=== PATIENT | female | born 1965 | race Caucasian/White ===

== ENCOUNTER 2018-07-20 18:45 | Inpatient (IN) ==
[2018-07-20] MEDS ORDERED: NS 1,000 ML IV ONE ×2 (19:59→23:02)
--- NOTE | 2018-07-20 20:04 | PROVIDER DOCUMENTATION ---
HPI-General Adult - General Chief Complaint: High Blood Sugar Stated Complaint: BLOOD SUGAR PROBS Time Seen by Provider: 07/20/18 19:40 Source: patient Allergies/Adverse Reactions: Patient Allergies Allergy/AdvReac Type Severity Reaction Status Date / Time Tetracyclines Allergy Severe RASH, SOB Verified 03/27/18 05:56 tigecycline [From Tygacil] Allergy Severe RASH, SOB Verified 03/27/18 05:56 Home Medications: Home Medication List Medication Instructions Recorded Confirmed Last Taken Type Pregabalin [Lyrica] 75 mg PO BID 03/19/17 07/20/18 02/22/18 08:00 History Insulin Lispro [Humalog] 20 unit SQ BID 04/04/17 07/20/18 03/26/18 21:00 History Insulin Glargine [Lantus] 30 unit SUBQ QHS #0 08/13/17 07/20/18 03/26/18 21:00 Rx - History of Present Illness -Gen Adult Nature of Presenting Problems: 53yof present to ER with c/o high blood sugar. States her blood sugar has fluctuated since March. Pt has hx of DKA and renal failure. Pt denies nv or fever. Fruity breathe noted. Location of Pain/Injury: reports: none Associated Symptoms: denies: chest pain, cough, diarrhea, fever/chills, genitourinary problems, sinus congestion/drainage, nausea, vomiting - Diabetes Related Context Context: reports: high blood sugar, prior DKA hospitalization Review of Systems - Adult - REVIEW OF SYSTEMS - ADULT Constitutional: reports: no symptoms reported. denies: chills, fever Eyes: reports: no symptoms reported Ears, Nose, Mouth & Throat: reports: no symptoms reported Cardiovascular: reports: no symptoms reported. denies: chest pain Respiratory: reports: no symptoms reported. denies: cough Gastrointestinal: reports: no symptoms reported. denies: abdominal pain, diarrhea, nausea, vomiting Genitourinary: reports: no symptoms reported. denies: dysuria, frequency, hematuria Musculoskeletal: reports: no symptoms reported Integumentary: reports: no symptoms reported Neurological: reports: no symptoms reported Psychiatric: reports: no symptoms reported Endocrine: reports: no symptoms reported Hematologic/Lymphatic: reports: no symptoms reported Allergic/Immunologic: reports: no symptoms reported All Other Systems: Reviewed and Negative Past History - Adult - PAST MEDICAL HISTORY-ADULT Review of Records: reports: Old Records Reviewed, Nursing Assessment Review, Medications Reviewed Major Childhood Illnesses: reports: denies history Cardiovascular: reports: HTN Respiratory: reports: denies history Gastrointestinal: reports: denies history Obstetrical/Gynecological: reports: denies history Genitourinary: reports: dialysis, kidney disease Musculoskeletal: reports: denies history Neurological: reports: denies history Endocrine/Immune: reports: Diabetes Diabetes Type: Type 2 Diabetes controlled by:: Insulin Dependent Other Conditions: reports: denies history - PRIOR SURGERIES/PROCEDURES Surgical/Procedure History: reports: , other (cyst removed from left leg) - PRIOR HOSPITALIZATIONS Prior Hospitalizations: reports: none - IMMUNIZATION STATUS Childhood Immunizations: See Nurse Assessment Flu Vaccine: See Nurse Assessment - FAMILY HISTORY Family History: reviewed, not pertinent Physical Exam-General - PHYSICAL EXAM-ADULT Initial Vital Signs Reviewed: Yes - CONSTITUTIONAL General Appearance: alert, no apparent distress - EYES Eyes: pink conjunctivae - HEAD, EARS, NOSE, MOUTH & THROAT HENMT: moist mucous membranes, normal ENT inspection - NECK Neck: full range of motion, supple, normal inspection - RESPIRATORY Respiratory: lungs clear, normal breath sounds - CARDIOVASCULAR Cardiovascular: regular rate, rhythm - GASTROINTESTINAL (ABDOMEN) Abdominal Exam: normal bowel sounds, non tender, soft - LYMPHATIC Lymphatic: no adenopathy - MUSCULOSKELETAL Back Exam: normal inspection, no CVA tenderness, no vertebral tenderness Extremity: normal range of motion, normal gait, normal inspection - SKIN Integumentary: normal color, normal turgor, warm/dry. negative: rash - NEUROLOGIC Neurologic: grossly normal - PSYCHIATRIC Psych/Mental Status: oriented x 3 Progress - PLAN OF CARE/RESULTS Progress/Plan/Lab Results: Vital Signs - 8 hr 07/20/18 19:31 Temperature 98.2 F Pulse Rate 94 H Respiratory Rate 18 Blood Pressure 133/81 O2 Sat by Pulse Oximetry 99 Orders Category Date Time Status FSBS [Finger Stick Blood Sugar (ED)] DIRECTED Care 07/20/18 20:00 Active Nursing- Obtain EKG once Care 07/20/18 19:58 Active ABG [RESP] Routine Lab 07/20/18 19:58 Ordered CBC WITH DIFF [HEME] Stat Lab 07/20/18 19:58 Uncollected COMPREHENSIVE METABOLIC PANEL [CHEM] Stat Lab 07/20/18 19:[address] W/POSS RFLX CULT [URINALYSIS] Stat Lab 07/20/18 19:58 Uncollected 0.9% Sodium Chloride Inj [Ns] 1,000 ml Med 07/20/18 19:59 Active IV 999 mls/hr EKG [EKG] Stat Ther 07/20/18 19:58 Ordered Result Diagrams: 07/20/18 20:25 07/20/18 20:25 - REASSESSMENT Reassessment #1 Time Reassessed: 22:00 (discussed results with pt and tx plan. Pt agrees. VSS. ) - CONSULTS/PCP/HOSPITALIST Notification #1 *Consult/PCP/Hospitalist*: Dr Del Real, hospitalist Time Discussed: 19:48 (admission dka) Consult Disposition: Admit Departure - Departure Date of Disposition Decision: 07/20/18 Time of Disposition Decision: 21:52 DIAGNOSIS: Ketoacidosis in diabetes mellitus Disposition: ADMITTED INPATIENT 09 Certified Medical Emergency: Emergent Condition: Fair Referrals and Follow-Ups: Georgi Avery MD [Primary Care Provider] - - Critical Care Note This patient required my direct & personal management of CC.: Yes Total Time (mins): 40 Critical Care Statement: This patient required my direct personal management to treat or rule out processes, the absence of which, could potentiallly result in sudden, clinically significant life or limb threatening deterioration. Attestation - Physician/ LUIS MANUEL Attestation Patient care was provided by Advanced Practice Provider:: Yes Advanced Practice Provider:: [employer] [place] Advanced Practice Provider documentation review:: The Mid-level provider documentation, treatment plan and medical decision making was reviewed by the physician who agrees with all treatment and medical decision making by the MLP. The physician spent face to face time with patient:: No Advanced Practice Provider documentation review:: Supervising physician onsite and consulted in the evaluation and care of this patient. The physician did not have a face to face encounter with the patient.
[2018-07-20 20:35] LABS: BE -18.8 mmoll (-3.0-3.0); BLOOD TYPE ARTERIAL; HCO3-(ACT) 10.2 mmoll (20.0-26.0); METHB 1.4 % (0.0-1.5); O2(CT) 18.3 mL/dL (15.0-23.0); O2HB 95.7 % (95.0-99.0); PCO2(98.6) 20 mmHg (35-45); PO2(98.6) 108 mmHg (60-100); SAMPLE BLOOD; SAO2 99.1 % (95.0-100.0); THB 13.5 g/dL (11.5-17.4)
[2018-07-20 20:40] LABS: ALLEN TEST YES; MODALITY ROOM AIR; pH(98.6) 7.18 (7.35-7.45)
--- NOTE | 2018-07-20 20:42 | EKG Report ---
Test Performed on : 07/20/2018 8:25:02 PM Test Reason : weakness Blood Pressure : / mmHG Vent. Rate : 090 BPM Atrial Rate : 090 BPM P-R Int : 182 ms QRS Dur : 090 ms QT Int : 372 ms P-R-T Axes : 056 032 055 degrees QTc Int : 455 ms Normal sinus rhythm. Possible Left atrial enlargement Borderline ECG When compared with ECG of 14-JUL-2018 09:57, (Unconfirmed) Nonspecific T wave abnormality no longer evident in Anterolateral leads Unconfirmed Result
[2018-07-20 20:49] LABS: BASO# 0.01 X1000 (0.0-0.2); BASO% 0.3 % (0.0-0.8); EOS# 0.03 X1000 (0.0-0.7); EOS% 0.9 % (0.0-10.0); HEMATOCRIT 40.2 % (37.0-47.0); HEMOGLOBIN 13.4 g/dL (12.0-16.0); IMM GRAN# 0.01 X1000 (0.0-0.04); IMM GRAN% 0.3 % (0.0-0.5); LYMPH# 1.11 X1000 (1.2-3.4); LYMPH% 33.7 % (20.5-51.1); MCH 30.6 PG (27-31); MCHC 33.3 g/dL (33-37); MCV 91.8 FL (81-99); MONO# 0.24 X1000 (0.11-0.59); MONO% 7.3 % (1.7-9.3); MPV 10.7 FL (7.4-10.4); NEUT# 1.89 X1000 (1.4-6.5); NEUT% 57.5 % (42.2-75.2); PLT 203 X1000 (130-400); RBC 4.38 XMIL (4.2-5.4); RDW 12.3 % (11.5-14.5); WBC 3.29 X1000 (4.8-10.8)
[2018-07-20 21:02] LABS: BILIRUBIN URINE NEGATIVE (NEGATIVE); BLOOD URINE TRACE (NEGATIVE); CLARITY CLEAR (CLEAR); COLOR YELLOW; KETONE URINE 3+(Large) mg/dL (NEGATIVE); LEUKOCYTES URINE NEGATIVE (NEGATIVE); NITRITE URINE NEGATIVE (NEGATIVE); PROTEIN URINE TRACE mg/dL (NEGATIVE); SP GRAVITY URINE 1.015; UROBILINOGEN URINE NORMAL
[2018-07-20 21:05] LABS: URINE SOURCE CLEAN CATCH
[2018-07-20 21:05] LABS: ALBUMIN 3.6 g/dL (3.5-5.0); CALCIUM 9.5 mg/dL (8.8-10.2); CREATININE 1.2 mg/dL (0.5-0.9); POTASSIUM 4.6 mmol/L (3.5-5.1); TOTAL BILIRUBIN 0.4 mg/dL (0.20-1.00); TOTAL PROTEIN 7.5 g/dL (6.3-8.3)
[2018-07-20 21:06] LABS: URINE BACTERIA NEGATIVE /HFP; URINE CAST NONE SEEN /LPF; URINE CRYSTAL NONE SEEN /HPF; URINE EPITHELIAL CELLS <10 /HPF (<10); URINE RBC <10 /HPF (<10); URINE WBC <10 /HPF (<10); URINE YEAST NONE SEEN /HPF
[2018-07-20] MEDS ORDERED: HUMULIN R (PARKWAY) IV ONE (21:08)
--- NOTE | 2018-07-20 22:10 | Diag Imaging Result Doc PS360 ---
EXAM: CHEST-2 VIEWS - 07/20/2018 HISTORY: DKA TECHNIQUE: Chest two views COMPARISON: 07/14/2018 FINDINGS: Heart size is normal. There is mild tortuosity of the thoracic aorta similar to prior. The lungs appear clear. There is no substantial pleural effusion or pneumothorax identified. There is thoracic spondylosis noted. IMPRESSION: No evidence of acute disease. Electronically signed by Hubert Garcia 07/20/2018 10:07 PM
[2018-07-20] MEDS: HUMULIN R (PARKWAY) 100 UNITS in NS 100 ML IV SCH (22:15)
[2018-07-20 22:31] LABS: BE -18.7 mmoll (-3.0-3.0); BLOOD TYPE ARTERIAL; HCO3-(ACT) 10.3 mmoll (20.0-26.0); METHB 1.5 % (0.0-1.5); O2(CT) 17.9 mL/dL (15.0-23.0); O2HB 95.6 % (95.0-99.0); PCO2(98.6) 22 mmHg (35-45); PO2(98.6) 117 mmHg (60-100); SAMPLE BLOOD; SAO2 98.8 % (95.0-100.0); THB 13.2 g/dL (11.5-17.4)
[2018-07-20 22:33] LABS: ALLEN TEST NO; MODALITY ROOM AIR; pH(98.6) 7.17 (7.35-7.45)
[2018-07-20] MEDS ORDERED: ZOFRAN IV ONE (23:02)
--- NOTE | 2018-07-20 23:36 | ED EKG INTERP ---
This chart was entered by Lyn Best Scribe, acting as scribe for Gaston Easton MD. EKG Interpretation - EKG Time of EKG reading by physician:: 20:25 EKG Read and Signed by:: Gaston Easton EKG Interpretation (*Must complete 3 of following elements*): Abnormal (poss LAE ) Rate: 90 Rhythm: nsr [place]: normal QRS: normal NM Interval: normal ST Wave: normal Prior EKG Comparison: no prior EKG Attestation - Physician/ LUIS MANUEL Attestation Patient care was provided by Advanced Practice Provider:: Yes Advanced Practice Provider documentation review:: The Mid-level provider documentation, treatment plan and medical decision making was reviewed by the physician who agrees with all treatment and medical decision making by the MLP. The physician spent face to face time with patient:: No Advanced Practice Provider documentation review:: Supervising physician onsite and consulted in the evaluation and care of this patient. The physician did not have a face to face encounter with the patient. This chart was documented by the indicated scribe, (Lyn Best Scribe) and accurately reflects the services I performed and decisions made by me, Gaston Easton MD, as attested by the provider's signature.
[2018-07-20 23:45] LABS: CALCIUM 8.9 mg/dL (8.8-10.2); CREATININE 1.1 mg/dL (0.5-0.9); PHOSPHORUS 2.1 mg/dL (2.7-4.5); POTASSIUM 3.7 mmol/L (3.5-5.1)
[2018-07-21] MEDS: HUMULIN R (PARKWAY) 100 UNITS in NS 100 ML IV SCH ×6 (00:16→10:00)
[2018-07-21] MEDS ORDERED: POTASSIUM CHLORIDE 10% LIQUID PO ONE ×2 (01:15→05:18)
[2018-07-21] MEDS ORDERED: KLOR-CON PO ONE (01:24)
[2018-07-21] MEDS ORDERED: NS 1,000 ML IV SCH (01:30)
[2018-07-21] MEDS: D5 1/2 NS 1,000 ML IV SCH ×2 (02:55→07:45)
[2018-07-21 04:17] LABS: BLOOD TYPE ARTERIAL; HCO3-(ACT) 17.9 mmoll (20.0-26.0); METHB 1.7 % (0.0-1.5); O2(CT) 15.8 mL/dL (15.0-23.0); O2HB 95.3 % (95.0-99.0); PCO2(98.6) 30 mmHg (35-45); PO2(98.6) 101 mmHg (60-100); SAMPLE BLOOD; THB 11.7 g/dL (11.5-17.4); pH(98.6) 7.33 (7.35-7.45)
[2018-07-21 04:19] LABS: ALLEN TEST YES; MODALITY ROOM AIR
[2018-07-21 05:14] LABS: CALCIUM 8.5 mg/dL (8.8-10.2); PHOSPHORUS 1.5 mg/dL (2.7-4.5); POTASSIUM 3.3 mmol/L (3.5-5.1)
[2018-07-21 07:48] LABS: AGAP 11; BUN 14 mg/dL (8-22); CALCIUM 8.4 mg/dL (8.8-10.2); CHLORIDE 108 mmol/L (98-107); COSMO 276; CREATININE 0.8 mg/dL (0.5-0.9); ESTIMATED GFR > 60; GLUCOSE 171 mg/dL (70-104); PHOSPHORUS 2.2 mg/dL (2.7-4.5); POTASSIUM 4.1 mmol/L (3.5-5.1); SODIUM 136 mmol/L (136-145); TCO2 17 mmol/L (25-35)
[2018-07-21 08:18] LABS: BE -7.9 mmoll (-3.0-3.0); BLOOD TYPE ARTERIAL; HCO3-(ACT) 18.7 mmoll (20.0-26.0); METHB 1.5 % (0.0-1.5); O2(CT) 15.5 mL/dL (15.0-23.0); O2HB 95.8 % (95.0-99.0); PCO2(98.6) 30 mmHg (35-45); PO2(98.6) 106 mmHg (60-100); SAMPLE BLOOD; SAO2 99.2 % (95.0-100.0); THB 11.4 g/dL (11.5-17.4); pH(98.6) 7.35 (7.35-7.45)
[2018-07-21 08:28] LABS: ALLEN TEST YES; MODALITY ROOM AIR
--- NOTE | 2018-07-21 10:06 | HISTORY AND PHYSICAL ---
PRIMARY CARE PHYSICIAN: Dr. Avery. CHIEF COMPLAINT: Elevated blood sugar. HISTORY OF PRESENTING ILLNESS: This is a 53-year-old, female who presents to [facility] ER with complaints of high blood sugar. She states that her blood sugars have been fluctuating since March. She has had several admissions for DKA in the past. When she arrived to the emergency room, her blood sugar was 719, sodium was 127, creatinine was 1.2. ABG showed a pH of 7.18, pCO2 of 20, PO2 108, bicarb of 10.2, and that was on room air. She was admitted in DKA and placed on the DKA protocol but we did not have a unit bed available so she is holding in the emergency room at this time. It is noted that her blood sugars have improved now. This morning, it was 171 so she will be admitted to the intensive care unit once a bed is made available. PAST MEDICAL HISTORY: Diabetes, chronic pain, neuropathy, chronic kidney disease that required dialysis in the past but is not currently receiving dialysis, and has had frequent admissions for DKA. PAST SURGICAL HISTORY: Vascular access for her dialysis and a section. FAMILY HISTORY: Reviewed and noncontributory. SOCIAL HISTORY: She currently lives alone. Denies any tobacco, alcohol, or illicit drug use. ALLERGIES: To tetracycline and tigecycline. HOME MEDICATIONS: She takes Lantus 30 units subcutaneous at bedtime, Humalog 20 units subcutaneously b.i.d., and Lyrica 75 mg p.o. b.i.d. We will hold those at this time while she is on her insulin drip. I will allow her to have her Lyrica. LABORATORY DATA: Showed a white blood cell count of 3.29, hemoglobin 13.4, hematocrit 40.2, platelets 203,000. ABG on arrival showed a pH of 7.18, pCO2 of 20, PO2 of 108, bicarb 10.2. That was on room air. This morning, her ABG showed a pH of 7.35, pCO2 of 30, PO2 106, bicarb 18.7, and that was on room air also. On arrival, her sodium was 127, potassium 4.6, chloride 88, CO2 9, BUN of 18, creatinine 1.2, glucose 719. Magnesium was 1.9. This morning, her sodium was 136, potassium 4.1, chloride 108, CO2 17, BUN of 14, creatinine 0.8, glucose 171. Urinalysis was negative. Chest x-ray showed no evidence of acute disease. EKG showed normal sinus rhythm at 90. REVIEW OF SYSTEMS: She denied any fever or chills. She did have some blurred vision and dizziness. Denied any chest pain, coughing, shortness of breath. Denied any abdominal pain, constipation, diarrhea, or burning or hurting with urination. PHYSICAL EXAMINATION: VITAL SIGNS: On arrival, she had a temperature of 98.2 degrees, pulse 94, respirations 18, blood pressure 133/81, saturating 99% on room air. GENERAL: This is a 53-year-old, female, lying in the bed and answers questions appropriately. HEENT: Normocephalic and atraumatic. Normal ENT inspection. Oropharynx and nares are clear. Eyes: Pupils are equal, round, and reactive to light and accommodation. Extraocular movements are intact. NECK: Normal inspection. Normal range of motion. LUNGS: Clear to auscultation bilaterally with equal lung expansion and chest wall movement. HEART: With regular rate and rhythm. No murmurs, rubs, or gallops. ABDOMEN: Soft, nontender, nondistended. Bowel sounds are present x4 quadrants. MUSCULOSKELETAL: She has 5/5 strength x4 extremities. NEUROLOGICAL: The cranial nerves 2-12 appear grossly intact. ASSESSMENT: 1. Diabetic ketoacidosis. 2. Hypokalemia. 3. Diabetes type 2, uncontrolled with hyperglycemia. 4. Chronic pain. PLAN: She is to be admitted to the intensive care unit. We do not have a bed available at this time so she is holding in the emergency room. Placed an indwelling Arriaga catheter. Diabetic diet. She was supplemented with potassium in the emergency room, given 2 L of normal saline, given 10 units of Humulin R IV x1. She is currently on D5 and a half NS at 200 mL an hour. Further orders after seen by attending. Dictated by DONAVON Garcia for Jose Del Real MD cc: DONAVON Garcia MD Moses Awoniyi, MD
[2018-07-21] MEDS ORDERED: FLU VACCINE IM ONE (11:05)
[2018-07-21] MEDS: LYRICA PO SCH ×2 (11:40→20:17)
[2018-07-21] MEDS: NS 1,000 ML IV SCH ×2 (11:40→22:31)
[2018-07-21 11:52] LABS: AGAP 14; BUN 12 mg/dL (8-22); CHLORIDE 105 mmol/L (98-107); COSMO 282; CREATININE 0.9 mg/dL (0.5-0.9); ESTIMATED GFR > 60; GLUCOSE 282 mg/dL (70-104); PHOSPHORUS 2.2 mg/dL (2.7-4.5); POTASSIUM 4.6 mmol/L (3.5-5.1); SODIUM 136 mmol/L (136-145); TCO2 17 mmol/L (25-35)
[2018-07-21] MEDS: HUMALOG DOSE (PARKWAY) SUBQ SCH ×3 (12:18→22:30)
[2018-07-21 16:10] LABS: AGAP 11; BUN 13 mg/dL (8-22); CALCIUM 8.3 mg/dL (8.8-10.2); CHLORIDE 107 mmol/L (98-107); COSMO 283; CREATININE 0.9 mg/dL (0.5-0.9); ESTIMATED GFR > 60; GLUCOSE 254 mg/dL (70-104); PHOSPHORUS 1.9 mg/dL (2.7-4.5); POTASSIUM 3.9 mmol/L (3.5-5.1); SODIUM 137 mmol/L (136-145); TCO2 19 mmol/L (25-35)
[2018-07-21] MEDS ORDERED: ZOFRAN IV PRN (17:42)
[2018-07-21] MEDS ORDERED: TYLENOL PO PRN (17:42)
[2018-07-21] MEDS ORDERED: SODIUM CHLORIDE 0.9% INJ SCH (17:45)
[2018-07-21] MEDS ORDERED: INSULIN PEN NEEDLES MISC PRN (17:51)
--- NOTE | 2018-07-21 18:37 | PROGRESS NOTE ---
DATE: 07/21/2018 SUBJECTIVE: I have seen in conjunction with Pili Harris. Briefly, patient came in with elevated blood sugar. She says her sugars usually are fairly well controlled. She has been compliant with her medications, but she is just extremely brittle. She has lost a lot of weight. This actually probably could be categorized. She was 261. She is down to 234, and curiously she is down to 195, but her weight about a year ago was 260 pounds, so she has lost a significant amount of weight. In any case, the patient's blood sugar is elevated. She was felt to be in DKA. She was placed on insulin and her gap closed. She has been switched off her insulin and now she is stabilizing. Her kidney function is basically back to normal. PROBLEM LIST: 1. DKA. We will continue fluids, insulin and follow closely. 2. Hypokalemia, hypophosphatemia. We will supplement and follow. DISPOSITION: Pending clinical status. cc: Jose Del Real MD
[2018-07-21] MEDS: PROTONIX IV SCH (19:19)
[2018-07-21] MEDS: NEUTRA-PHOS PO SCH (20:17)
[2018-07-21] MEDS ORDERED: BASAGLAR SUBQ SCH (21:00)
[2018-07-22 06:34] LABS: BASO# 0.01 X1000 (0.0-0.2); BASO% 0.3 % (0.0-0.8); EOS# 0.07 X1000 (0.0-0.7); HEMOGLOBIN 11.6 g/dL (12.0-16.0); LYMPH# 1.73 X1000 (1.2-3.4); LYMPH% 50.6 % (20.5-51.1); MCH 29.7 PG (27-31); MCHC 33.1 g/dL (33-37); MCV 89.7 FL (81-99); MONO# 0.28 X1000 (0.11-0.59); MONO% 8.2 % (1.7-9.3); MPV 10.1 FL (7.4-10.4); NEUT# 1.33 X1000 (1.4-6.5); NEUT% 38.9 % (42.2-75.2); PLT 166 X1000 (130-400); RDW 12.6 % (11.5-14.5); WBC 3.42 X1000 (4.8-10.8)
[2018-07-22] MEDS: HUMALOG DOSE (PARKWAY) SUBQ SCH ×2 (06:34→12:46)
[2018-07-22] MEDS: NS 1,000 ML IV SCH (06:34)
[2018-07-22 06:48] LABS: AGAP 12; BUN 10 mg/dL (8-22); CHLORIDE 111 mmol/L (98-107); COSMO 281; CREATININE 0.7 mg/dL (0.5-0.9); ESTIMATED GFR > 60; GLUCOSE 69 mg/dL (70-104); POTASSIUM 3.6 mmol/L (3.5-5.1); SODIUM 142 mmol/L (136-145); TCO2 19 mmol/L (25-35)
[2018-07-22] MEDS: NEUTRA-PHOS PO SCH ×3 (12:58→17:27)
[2018-07-22] MEDS: LYRICA PO SCH (12:58)
[2018-07-22 15:23] VITALS: BP 106/72
[2018-07-22] MEDS ORDERED: HUMALOG DOSE (PARKWAY) SUBQ SCH (16:00)
[2018-07-22] MEDS: PROTONIX IV SCH (17:27)
--- NOTE | 2018-07-22 21:11 | DISCHARGE SUMMARY ---
ADMISSION DATE: 07/20/2018 DISCHARGE DATE: 07/22/2018 SUBJECTIVE: Patient has no focal complaints. DISCHARGE DIAGNOSES: 1. Diabetic ketoacidosis. 2. "Brittle" diabetes. HOSPITAL COURSE: The patient presented with hyperglycemia. She had a bicarb of 10. She had sugar of 719, pH 7.18. She was placed on an insulin drip and slowly improved. Her gap closed by that morning. She was transitioned to Lantus. However, sugars were still in the 300/400 range, so we monitored her another day. She also dropped in the morning to about 60. Her last sugar, though, was around 287. Actually, she had pretty good control on the , but that was on an insulin drip. So, she was felt stable for discharge. She was discharged on increased dose of Lantus 20/35. She takes Humalog 20 b.i.d., but I would probably recommend she take 10 three times a day, and then she is also on Lyrica 75 b.i.d. I told to follow up with her PCP, is Dr. Georgi Chambers, and we will go from there. TIME SPENT: A 30 minute discharge. cc: Jose Del Real MD
== END 2018-07-22 19:45 | disposition home or self-care (01) | DRG 639 ==
LOC: P.ED 18:45 → P.EDIPHOLD 22:03
PROVIDERS: ATTEND Internal Medicine
CPT/HCPCS: 36415; 51702; 71020; 71046; 80048; 80053; 81001; 82805; 82948; 83036; 83735; 84100; 85025; 93005; 96361; 96365; 96366; 96375; 99285; 99291; A9270; C9113; J1815; J2405; J7030; S0164; XXXXX

== ENCOUNTER 2019-01-11 17:41 | Inpatient (IN) ==
--- NOTE | 2019-01-11 19:40 | PROVIDER DOCUMENTATION ---
HPI-General Adult - General Chief Complaint: High Blood Sugar Stated Complaint: BLOOD SUGAR LOW Time Seen by Provider: 01/11/19 19:30 Source: patient Allergies/Adverse Reactions: Patient Allergies Allergy/AdvReac Type Severity Reaction Status Date / Time Tetracyclines Allergy Severe RASH, SOB Verified 03/27/18 05:56 tigecycline [From Tygacil] Allergy Severe RASH, SOB Verified 03/27/18 05:56 Home Medications: Home Medication List Medication Instructions Recorded Confirmed Last Taken Type Pregabalin [Lyrica] 75 mg PO BID 03/19/17 07/20/18 02/22/18 08:00 History Insulin Glargine [Lantus] 35 unit SUBQ QHS #1 insuln.pen 07/22/18 Unknown Rx Insulin Lispro [Humalog] 10 unit SQ TID #1 cartridge 07/22/18 Unknown Rx - History of Present Illness -Gen Adult Nature of Presenting Problems: 53 YOF PRESENTS REPORTING HER BG HAS BEEN GOING UP AND DOWN SINCE JULY AND SHE "SOMETIMES GETS LIGHTHEADED AND WAS THINKING SHE MIGHT NEED TO BE SENT TO THE [facility]. SHE DENIES FALLS. SHE REPORTS SHE HAD TO "SIT DOWN HARD" ON THE SOFA TODAY WHEN SHE STOOD UP TO ANSWER THE DOOR. SHE DENIES FEVER, CHILLS, SOB, CP, PALPITATIONS, N/V/D. SHE ALSO C/O A HEAD ACHE AND WHEN OFFERED TYLENOL SHE DECLINES THIS Location of Pain/Injury: reports: head Quality of Pain: reports: aching Severity: reports: mild Onset/Duration: reports: other (SINCE JULY) Timing: reports: still present Context/Activities at Onset: reports: none Modifying Factors: improves with: nothing Associated Symptoms: reports: headaches Similar Symptoms Previously?: No Recently seen or treated by another doctor?: No - Diabetes Related Context Context: reports: high blood sugar Review of Systems - Adult - REVIEW OF SYSTEMS - ADULT Constitutional: reports: no symptoms reported. denies: see HPI, chills, fever, fatique, night sweats, weight gain, weight loss, other Eyes: reports: no symptoms reported. denies: see HPI, discharge, dry eyes, decreased vision, blurred vision, double vision, eye pain, redness, other Ears, Nose, Mouth & Throat: reports: no symptoms reported. denies: see HPI, ear discharge, ear pain, hearing loss, tinnitus, epistaxis, sinus problem, nose pain, loose teeth, mouth/dental pain, mouth swelling, hoarseness, throat pain, throat swelling, other Cardiovascular: reports: no symptoms reported. denies: see HPI, chest pain, edema, heart murmur, irregular heart rate, orthopnea, palpitations, poor circulation, PND, syncope, other Respiratory: reports: no symptoms reported. denies: see HPI, chronic cough, cough, dyspnea on exertion, excessive sputum production, hemoptysis, pleurisy, shortness of breath, wheezing, other Gastrointestinal: reports: no symptoms reported. denies: see HPI, abdominal pain, hematemesis, constipation, diarrhea, difficulty swallowing, frequent heartburn, nausea, poor appetite, rectal bleeding, vomiting, other Genitourinary: reports: no symptoms reported. denies: see HPI, dysuria, discharge, frequency, flank pain, frequent UTI's, hematuria, hesitency, incontinence, urinary retention, urgency, other Musculoskeletal: reports: no symptoms reported. denies: see HPI, bone pain, back pain, frequent leg cramps, joint pain, joint swelling, muscle aches, muscle weakness, neck pain, other Integumentary: reports: no symptoms reported. denies: see HPI, hives, hair loss, itching, mole changes, nail changes, rash, skin sores/ulcer, skin thickening, other Neurological: reports: headache/migraines. denies: no symptoms reported, see HPI, ataxia, dizziness/vertigo, loss of balance, numbness, paresthesia, seizure, slurred speech, syncope, tremors, other Psychiatric: reports: no symptoms reported. denies: see HPI, anxiety, anti- depressant use, alcohol/drug dependence, depression, emotional problems, insomnia, panic attacks, suicidal thoughts, other Endocrine: reports: no symptoms reported. denies: see HPI, change in skin pigment, excessive sweating, goiter, cold intolerance, heat intolerance, increased hunger, increased thirst, polyuria, other Hematologic/Lymphatic: reports: no symptoms reported. denies: see HPI, blood clots, easy bruising, low blood count, lymphedema, prolonged bleeding, swollen lymph nodes, transfusions, other Allergic/Immunologic: denies: no symptoms reported, see HPI, allergic reactions, allergic rhinitis, asthma, eczema, food allergy, frequent infections, hay fever, hives, positive PPD, urticaria, other Past History - Adult - PAST MEDICAL HISTORY-ADULT Review of Records: reports: Nursing Assessment Review, Social history reviewed & non-contributory. Major Childhood Illnesses: reports: denies history Cardiovascular: reports: HTN Respiratory: reports: denies history Gastrointestinal: reports: denies history Obstetrical/Gynecological: reports: denies history Genitourinary: reports: dialysis, kidney disease Musculoskeletal: reports: denies history Neurological: reports: denies history Endocrine/Immune: reports: Diabetes Other Conditions: reports: denies history - PRIOR SURGERIES/PROCEDURES Surgical/Procedure History: reports: , other (cyst removed from left leg) - PRIOR HOSPITALIZATIONS Prior Hospitalizations: reports: none - IMMUNIZATION STATUS Childhood Immunizations: See Nurse Assessment Flu Vaccine: See Nurse Assessment - FAMILY HISTORY Family History: reviewed, not pertinent Physical Exam-General - PHYSICAL EXAM-ADULT Initial Vital Signs Reviewed: Yes - CONSTITUTIONAL General Appearance: appears well, alert, no apparent distress - EYES Eyes: PERRL/EOMI - HEAD, EARS, NOSE, MOUTH & THROAT HENMT: normocephalic/atraumatic, moist mucous membranes, normal ENT inspection - NECK Neck: non-tender, full range of motion, supple - RESPIRATORY Respiratory: chest non-tender, lungs clear, normal breath sounds - CARDIOVASCULAR Cardiovascular: normal peripheral pulses, regular rate, rhythm, no edema, no gallop, no JVD, no murmur - GASTROINTESTINAL (ABDOMEN) Abdominal Exam: normal bowel sounds, non tender, soft - LYMPHATIC Lymphatic: no adenopathy - MUSCULOSKELETAL Back Exam: normal inspection Extremity: normal range of motion, non-tender, normal gait, normal inspection - SKIN Integumentary: normal color, normal turgor, warm/dry - NEUROLOGIC Neurologic: grossly normal - PSYCHIATRIC Psych/Mental Status: normal mood/affect, oriented x 3 Progress - PLAN OF CARE/RESULTS Progress/Plan/Lab Results: Vital Signs - 8 hr 01/11/19 17:50 Temperature 97.9 F Pulse Rate 111 H Respiratory Rate 18 Blood Pressure 121/80 O2 Sat by Pulse Oximetry 98 Laboratory Results - last 24 hr 01/11/19 17:55 POC Glucose 160 H D Orders Category Date Time Status ACETONE SERUM [CHEM] Stat Lab 01/11/19 19:33 Ordered CBC WITH ELECTRONIC DIFF [HEME] Stat Lab 01/11/19 19:33 Uncollected COMPREHENSIVE METABOLIC PANEL [CHEM] Stat Lab 01/11/19 19:33 Uncollected 1935: PATIENT IS REPORTING SHE REALLY FEELS LIKE SHE NEEDS SNF PLACEMENT DISCUSSED THAT THIS COULD BE ACHIEVED THROUGH HER PCP Result Diagrams: 01/11/19 19:55 01/11/19 19:55 - CONSULTS/PCP/HOSPITALIST Notification #1 *Consult/PCP/Hospitalist*: DR. AYALA Time Discussed: 21:44 Consult Disposition: Admit Departure - Departure Date of Disposition Decision: 01/11/19 Time of Disposition Decision: 21:43 DIAGNOSIS: Ketoacidosis in diabetes mellitus Disposition: ADMITTED INPATIENT 09 Certified Medical Emergency: Emergent Condition: Stable Referrals and Follow-Ups: Georgi Avery MD [Primary Care Provider] - - Critical Care Note This patient required my direct & personal management of CC.: No Attestation - Physician/ LUIS MANUEL Attestation Patient care was provided by Advanced Practice Provider:: Yes Advanced Practice Provider:: Sharifa Sandhu Advanced Practice Provider documentation review:: The Mid-level provider documentation, treatment plan and medical decision making was reviewed by the physician who agrees with all treatment and medical decision making by the MLP. The physician spent face to face time with patient:: No Advanced Practice Provider documentation review:: Supervising physician onsite and consulted in the evaluation and care of this patient. The physician did not have a face to face encounter with the patient.
[2019-01-11 20:09] LABS: BASO# 0.01 X1000 (0.0-0.2); BASO% 0.1 % (0.0-0.8); EOS# 0.01 X1000 (0.0-0.7); EOS% 0.1 % (0.0-10.0); HEMOGLOBIN 14.4 g/dL (12.0-16.0); IMM GRAN# 0.02 X1000 (0.0-0.04); IMM GRAN% 0.2 % (0.0-0.5); LYMPH# 1.23 X1000 (1.2-3.4); LYMPH% 13.5 % (20.5-51.1); MCH 31.1 PG (27-31); MCHC 34.3 g/dL (33-37); MCV 90.7 FL (81-99); MONO# 0.54 X1000 (0.11-0.59); MONO% 5.9 % (1.7-9.3); MPV 10.3 FL (7.4-10.4); NEUT# 7.27 X1000 (1.4-6.5); NEUT% 80.2 % (42.2-75.2); PLT 290 X1000 (130-400); RBC 4.63 XMIL (4.2-5.4); RDW 12.4 % (11.5-14.5); WBC 9.08 X1000 (4.8-10.8)
[2019-01-11 20:24] LABS: ALBUMIN 4.7 g/dL (3.5-5.0); CALCIUM 9.7 mg/dL (8.8-10.2); CREATININE 1.7 mg/dL (0.5-0.9); POTASSIUM 3.7 mmol/L (3.5-5.1); TOTAL BILIRUBIN 0.5 mg/dL (0.20-1.00); TOTAL PROTEIN 8.3 g/dL (6.3-8.3)
[2019-01-11] MEDS ORDERED: NS 1,000 ML IV ONE ×3 (20:28→21:47)
[2019-01-11 21:07] LABS: BE -10.9 mmoll (-3.0-3.0); BLOOD TYPE ARTERIAL; HCO3-(ACT) 16.4 mmoll (20.0-26.0); METHB 1.5 % (0.0-1.5); O2(CT) 19.9 mL/dL (15.0-23.0); O2HB 95.7 % (95.0-99.0); PCO2(98.6) 26 mmHg (35-45); PO2(98.6) 95 mmHg (60-100); SAMPLE BLOOD; SAO2 99.1 % (95.0-100.0); THB 14.7 g/dL (11.5-17.4); pH(98.6) 7.32 (7.35-7.45)
[2019-01-11 21:10] LABS: ALLEN TEST YES; MODALITY ROOM AIR
[2019-01-11] MEDS ORDERED: HUMULIN R (PARKWAY) SUBQ ONE (23:14)
[2019-01-12] MEDS: NS 1,000 ML IV SCH ×4 (00:03→21:38)
[2019-01-12 07:27] LABS: BASO# 0.01 X1000 (0.0-0.2); BASO% 0.2 % (0.0-0.8); EOS% 1.8 % (0.0-10.0); HEMATOCRIT 35.6 % (37.0-47.0); HEMOGLOBIN 12.1 g/dL (12.0-16.0); IMM GRAN# 0.01 X1000 (0.0-0.04); IMM GRAN% 0.2 % (0.0-0.5); LYMPH# 1.42 X1000 (1.2-3.4); LYMPH% 25.4 % (20.5-51.1); MCH 30.7 PG (27-31); MCV 90.4 FL (81-99); MONO# 0.54 X1000 (0.11-0.59); MONO% 9.7 % (1.7-9.3); MPV 10.8 FL (7.4-10.4); NEUT% 62.7 % (42.2-75.2); PLT 209 X1000 (130-400); RBC 3.94 XMIL (4.2-5.4); RDW 12.3 % (11.5-14.5); WBC 5.58 X1000 (4.8-10.8)
[2019-01-12 07:28] LABS: ALBUMIN 3.6 g/dL (3.5-5.0); CALCIUM 8.7 mg/dL (8.8-10.2); CREATININE 1.2 mg/dL (0.5-0.9); POTASSIUM 4.2 mmol/L (3.5-5.1); TOTAL BILIRUBIN 0.4 mg/dL (0.20-1.00); TOTAL PROTEIN 6.6 g/dL (6.3-8.3)
[2019-01-12 07:33] LABS: HEMOGLOBIN A1C 13.7 % (4.8-6.0)
[2019-01-12] MEDS: HUMALOG (PARKWAY) SUBQ SCH ×3 (13:02→21:40)
--- NOTE | 2019-01-12 16:51 | HISTORY AND PHYSICAL ---
CHIEF COMPLAINT: "I think my blood sugar is low." HISTORY OF PRESENT ILLNESS: This is a 54-year-old female with a history of diabetes mellitus, chronic pain, chronic kidney disease requiring hemodialysis in the past with frequent admissions for DKA. She presents to the emergency room complaining of feeling weak and "sitting down real hard" prior to arrival to the emergency room. She denied any syncope, any dizziness, any chest pain, or palpitations. She did state to the emergency room staff that she wondered if she needed to be sent to the detention. PAST MEDICAL HISTORY: 1. Diabetes mellitus. 2. Chronic pain. 3. Neuropathy. 4. Chronic kidney disease requiring dialysis in the past. 5. Noncompliance. PAST SURGICAL HISTORY: Vascular access for dialysis and a . SOCIAL HISTORY: She lives alone. She denies alcohol, tobacco, or illicit drug use. ALLERGIES: Tetracycline and tigecycline. HOME MEDICATIONS: A list will be obtained by the nursing staff, and once verified we will review and restart as is appropriate. REVIEW OF SYSTEMS: Discussed with patient with pertinent positives stated in the HPI. She denied any syncope or dizziness, any chest pain, palpitations, any recent weight loss or weight gain, night sweats, shortness of breath, cough, fever, chills, any PND, orthopnea, any nausea, vomiting, diarrhea, constipation, black or bloody vomitus or stools, any hematuria, dysuria, frequency, urgency. PHYSICAL EXAMINATION: GENERAL: This is a 54-year-old female, who is lying in the bed watching TV in no distress. VITAL SIGNS: Blood pressure is 121/72 with a heart rate of 70, respirations 18, temperature is 98 degrees oral with room air saturations 100%. EYES: Pupils are equal, round, react to light. EOMs are intact. Sclerae are anicteric. HEENT: Head is normocephalic, atraumatic. Mucous membranes are moist. NECK: Supple with trachea midline. She has no JVD. CARDIOVASCULAR: Regular rate and rhythm. S1 and S2 appreciated. EXTREMITIES: She has no lower extremity edema. Peripheral pulses are palpable times 4 extremities. Calves are nontender to palpation. PULMONARY: Breath sounds are clear with no increased work of breathing noted. Chest rises and falls symmetric to respiration. Chest wall is nontender to palpation. GASTROINTESTINAL: Abdomen is soft, nontender, nondistended with bowel sounds in all 4 quadrants. GENITOURINARY: She has no CVA. No suprapubic tenderness. NEUROLOGIC: She is alert and oriented. LABORATORY DATA: WBC 5.5, hemoglobin 12.1, hematocrit 35.6, platelets 209,000. Sodium 136, potassium 4.2, CO2 is 16, anion gap 15, BUN of 30, creatinine 1.2, and a glucose of 301. Hemoglobin A1c is 13.7. ASSESSMENT AND PLAN: 1. Diabetes mellitus, type 2, uncontrolled with hyperglycemia. 2. Noncompliance. 3. Chronic kidney disease, stage 3B to stage 4. PLAN: The patient has been admitted to the Medical/Surgical floor. She will be placed on telemetry for close monitoring. We will continue with IV hydration with blood sugars every 4 hours with insulin sliding scale. We will continue her home medications as appropriate. Further treatments pending hospital course. Dictated by DONAVON Winters for Jose Del Real MD cc: DONAVON Winters MD
[2019-01-12 19:42] LABS: CALCIUM 8.4 mg/dL (8.8-10.2); CREATININE 1.1 mg/dL (0.5-0.9); POTASSIUM 3.5 mmol/L (3.5-5.1)
--- NOTE | 2019-01-12 19:50 | HISTORY AND PHYSICAL ---
SUBJECTIVE: The patient came in because her sugars were elevated and she felt like she could not handle it. LABORATORY DATA: Her A1c is 13.7. She says she takes insulin as ordered, but does not seem very compliant, but in any case, she looks well. No major issues. We are going to get her back on her regimen and adjust accordingly. She does not appear to be in DKA, although her bicarb is fairly low. Her gap though is okay. Sugars seems better. We will get a basic this evening. In any case, the patient is stable. Continue to monitor. DISPOSITION: This is a [id number] encounter note with Mili Horne. Hopefully discharge soon. cc: Jose Del Real MD
[2019-01-12] MEDS: LANTUS INSULIN SUBQ SCH (21:39)
[2019-01-12] MEDS: LYRICA PO SCH (21:39)
[2019-01-12] MEDS: NEURONTIN PO SCH (21:39)
[2019-01-12] MEDS: FIORICET PO PRN (23:06)
[2019-01-13] MEDS: NS 1,000 ML IV SCH (05:55)
[2019-01-13] MEDS: HUMALOG (PARKWAY) SUBQ SCH ×6 (05:59→17:03)
[2019-01-13 06:54] LABS: BASO# 0.01 X1000 (0.0-0.2); BASO% 0.3 % (0.0-0.8); EOS% 2.8 % (0.0-10.0); HEMATOCRIT 34.7 % (37.0-47.0); HEMOGLOBIN 11.6 g/dL (12.0-16.0); IMM GRAN# 0.01 X1000 (0.0-0.04); IMM GRAN% 0.3 % (0.0-0.5); LYMPH# 1.65 X1000 (1.2-3.4); LYMPH% 46.1 % (20.5-51.1); MCH 30.5 PG (27-31); MCHC 33.4 g/dL (33-37); MCV 91.3 FL (81-99); MONO# 0.29 X1000 (0.11-0.59); MONO% 8.1 % (1.7-9.3); MPV 10.4 FL (7.4-10.4); NEUT# 1.52 X1000 (1.4-6.5); NEUT% 42.4 % (42.2-75.2); PLT 184 X1000 (130-400); RDW 12.9 % (11.5-14.5); WBC 3.58 X1000 (4.8-10.8)
[2019-01-13 07:08] LABS: AGAP 10; ALBUMIN 3.4 g/dL (3.5-5.0); BUN 20 mg/dL (8-22); CALCIUM 8.4 mg/dL (8.8-10.2); CHLORIDE 106 mmol/L (98-107); COSMO 278; CREATININE 0.8 mg/dL (0.5-0.9); ESTIMATED GFR > 60; GLUCOSE 198 mg/dL (70-104); PHOSPHORUS 2.7 mg/dL (2.7-4.5); POTASSIUM 3.5 mmol/L (3.5-5.1); SODIUM 135 mmol/L (136-145); TCO2 19 mmol/L (25-35)
[2019-01-13] MEDS: FIORICET PO PRN (08:18)
[2019-01-13] MEDS: NEURONTIN PO SCH ×2 (08:19→22:18)
[2019-01-13] MEDS: LYRICA PO SCH ×2 (08:19→22:17)
[2019-01-13] MEDS: ZOFRAN IV PRN ×2 (11:43→22:17)
--- NOTE | 2019-01-13 21:28 | PROGRESS NOTE ---
DATE: 01/13/2019 SUBJECTIVE: The patient notes that she is still lightheaded when standing. Denies any chest pain or palpitations. PHYSICAL EXAMINATION: Vital Signs: Temperature 97.4, pulse 60, respiratory rate 18, BP 153/84. General: Patient is in no distress. She appears awake, alert, oriented. HEENT: Normocephalic. Neck: Supple. Cardiovascular: Regular rate. Chest: Clear. Abdomen: Soft. Extremities: Moves all extremities. ASSESSMENT: 1. Type 2 diabetes with hyperglycemia and noncompliance. 2. Acute renal failure, resolved. 3. Chronic kidney disease stage 3-B. PLAN: We had attempted to send the patient home, as she denies any symptoms; however, after being told that she was going to go home, then she started complaining of nausea. We will follow this and hopefully discharge home tomorrow. cc: Jason Patel MD
[2019-01-13] MEDS: LANTUS INSULIN SUBQ SCH (22:17)
[2019-01-14] MEDS: HUMALOG (PARKWAY) SUBQ SCH ×6 (00:43→20:29)
[2019-01-14 07:06] LABS: AGAP 8; ALBUMIN 3.2 g/dL (3.5-5.0); BUN 16 mg/dL (8-22); CALCIUM 8.6 mg/dL (8.8-10.2); CHLORIDE 109 mmol/L (98-107); COSMO 285; CREATININE 0.8 mg/dL (0.5-0.9); ESTIMATED GFR > 60; GLUCOSE 217 mg/dL (70-104); PHOSPHORUS 3.3 mg/dL (2.7-4.5); POTASSIUM 3.8 mmol/L (3.5-5.1); SODIUM 139 mmol/L (136-145); TCO2 22 mmol/L (25-35)
[2019-01-14] MEDS: NEURONTIN PO SCH ×2 (08:07→20:25)
[2019-01-14] MEDS: LYRICA PO SCH ×2 (08:07→20:25)
[2019-01-14] MEDS: AUGMENTIN PO SCH ×2 (10:42→20:25)
[2019-01-14] MEDS: FIORICET PO PRN (12:52)
[2019-01-14] MEDS: ZOFRAN IV PRN (12:53)
--- NOTE | 2019-01-14 20:28 | PROGRESS NOTE ---
DATE: 01/14/2019 SUBJECTIVE: The patient notes she does not feel well. She did not eat well yesterday. Denies any fevers or chills. OBJECTIVE: Temperature 97.4 degrees, pulse 72, respiratory 18, BP 145/90.General: The patient is awake, currently in no distress. HEENT: Normocephalic. Neck supple. Cardiovascular: Regular rate. No murmurs. Chest clear, nonlabored. Abdomen soft, nondistended, nontender. Extremities: Moves all extremities. ASSESSMENT AND PLAN: 1. Diabetes with hypoglycemia. We held her insulin earlier. Currently her blood sugars are starting to increase. They were actually in the low 37 to 70 range, currently back to 200. We will add back a half dose of her insulin. 2. Chronic noncompliance. 3. Chronic kidney failure. 4. Sinus pain. We will place her on Augmentin. 5. Others. cc: Jason Patel MD
[2019-01-14] MEDS ORDERED: LANTUS INSULIN SUBQ SCH (21:00)
[2019-01-15] MEDS: HUMALOG (PARKWAY) SUBQ SCH ×5 (06:08→22:01)
[2019-01-15 07:03] LABS: AGAP 9; ALBUMIN 3.4 g/dL (3.5-5.0); BUN 20 mg/dL (8-22); CALCIUM 8.6 mg/dL (8.8-10.2); CHLORIDE 107 mmol/L (98-107); COSMO 288; CREATININE 0.9 mg/dL (0.5-0.9); ESTIMATED GFR > 60; GLUCOSE 310 mg/dL (70-104); PHOSPHORUS 3.7 mg/dL (2.7-4.5); POTASSIUM 3.9 mmol/L (3.5-5.1); SODIUM 137 mmol/L (136-145); TCO2 21 mmol/L (25-35)
[2019-01-15] MEDS: LYRICA PO SCH ×2 (08:25→21:43)
[2019-01-15] MEDS: NEURONTIN PO SCH ×2 (08:25→21:43)
[2019-01-15] MEDS: AUGMENTIN PO SCH ×2 (08:25→21:43)
[2019-01-15] MEDS: FIORICET PO PRN (11:47)
--- NOTE | 2019-01-15 20:16 | PROGRESS NOTE ---
DATE: 01/15/2019 SUBJECTIVE: Patient notes she is starting to feel a little bit better. She is having less headaches, less nausea, feels like she is going to be able to eat today. Denies any fevers or chills. Is having some facial pain. Notes that she frequently gets sinus infections. OBJECTIVE: Vital signs: Temperature 97.8 degrees, pulse 64, respiratory rate 18, BP 131/89. General: The patient is in no current distress. HEENT: Normocephalic. Neck: Supple. Cardiovascular: Regular rate. No murmurs. Chest: Clear. Abdomen: Soft, nondistended. Extremities: Moves all extremities. ASSESSMENT: 1. Maxillary sinusitis. We will continue Augmentin. 2. Diabetes with hypoglycemia. Blood sugars actually are improving. We will restart some of her home blood sugar medications. 3. Chronic kidney disease. PLAN: We will continue patient in the hospital. Hopefully, she will begin eating a little bit better and be able to discharge home tomorrow. cc: Jason Patel MD
[2019-01-16] MEDS: HUMALOG (PARKWAY) SUBQ SCH ×6 (06:18→21:57)
[2019-01-16] MEDS: AUGMENTIN PO SCH ×2 (10:03→21:58)
[2019-01-16] MEDS: JANUVIA PO SCH (10:03)
[2019-01-16] MEDS: LYRICA PO SCH ×2 (10:03→21:58)
[2019-01-16] MEDS: LANTUS INSULIN SUBQ SCH (10:04)
[2019-01-16] MEDS: NEURONTIN PO SCH ×2 (10:04→21:58)
--- NOTE | 2019-01-16 21:12 | PROGRESS NOTE ---
DATE: 01/16/2019 SUBJECTIVE: Patient notes that she is starting to feel a little bit better. Denies any fevers or chills. She has not really been out of bed. PHYSICAL EXAMINATION: Vital Signs: Temperature 97, pulse 68, respiratory rate 18, BP 143/95. General: The patient is in no current respiratory distress. HEENT: Normocephalic. Neck: Supple. Cardiovascular: Regular rate. Chest: Clear. Abdomen: Soft, nondistended. Extremities: Moves all extremities. ASSESSMENT: 1. Diabetes with poor home control. Blood sugars have improved, currently down into the l00s after stopping steroids. Her creatinine is back to normal. We have adjusted her blood sugar medications. 2. Sinusitis on Augmentin. 3. Chronic noncompliance. 4. Chronic kidney disease. PLAN: We will continue patient in the hospital tonight. Hopefully if her blood sugars are better, she can be discharged home in the morning. cc: Jason Patel MD
[2019-01-17] MEDS: HUMALOG (PARKWAY) SUBQ SCH ×6 (06:21→18:17)
[2019-01-17] MEDS ORDERED: DIFLUCAN PO SCH (09:45)
[2019-01-17] MEDS: NEURONTIN PO SCH (09:51)
[2019-01-17] MEDS: AUGMENTIN PO SCH (09:51)
[2019-01-17] MEDS: JANUVIA PO SCH (09:51)
[2019-01-17] MEDS: LYRICA PO SCH (09:51)
[2019-01-17] MEDS: LANTUS INSULIN SUBQ SCH (09:52)
[2019-01-17] MEDS: FIORICET PO PRN (12:06)
[2019-01-17 17:05] VITALS: BP 152/79
--- NOTE | 2019-01-17 19:27 | DISCHARGE SUMMARY ---
ADMISSION DATE: 01/11/2019 DISCHARGE DATE: 01/17/2019 DISCHARGE DIAGNOSES: 1. Sinusitis, improved. 2. Type 2 diabetes. Blood sugars improved. 3. Acute renal failure, resolved. 4. Medical noncompliance. 5. Chronic pain. 6. Neuropathy. CONSULTATIONS: None. PROCEDURES: None. BRIEF HOSPITAL COURSE: The patient is a 54-year-old female who presented to the hospital on the with low blood sugars. She continued to have some difficulties with her blood sugars during the hospital stay partially because of her erratic diet. On discharge, however, her blood sugars have been stable. She is improved and therefore we will discharge her home. DISPOSITION: Discussed with her that she will need to follow up outpatient with her primary care. We will continue to use a lower dose of insulin than she has been taking at home. We will continue to follow. No other changes made on her diet or activity otherwise. TIME SPENT: Greater than 30 minutes was spent in total care. cc: Jason Patel MD
[2019-01-17] MEDS ORDERED: MONISTAT-7 VAG CREAM VAG SCH (21:00)
== END 2019-01-17 19:08 | disposition home or self-care (01) | DRG 638 ==
LOC: P.ED 17:41 → P.MEDSURG 22:40 → SUATTDRO 22:40
PROVIDERS: ATTEND Family Medicine
CPT/HCPCS: 80048; 80053; 80069; 82009; 82805; 82947; 82948; 83036; 85025; 96360; 99285; A9270; J1815; J2405; J7030; XXXXX

== ENCOUNTER 2019-02-08 11:05 | Inpatient (IN) ==
[2019-02-08] MEDS ORDERED: NS 1,000 ML IV ONE ×2 (11:56)
[2019-02-08 12:15] LABS: ALLEN TEST YES; BE -23.1 mmoll (-3.0-3.0); BLOOD TYPE ARTERIAL; HCO3-(ACT) 6.9 mmoll (20.0-26.0); METHB 1.1 % (0.0-1.5); O2(CT) 20.5 mL/dL (15.0-23.0); O2HB 96.2 % (95.0-99.0); PO2(98.6) 110 mmHg (60-100); SAMPLE BLOOD; SAO2 98.9 % (95.0-100.0); THB 15.1 g/dL (11.5-17.4)
[2019-02-08 12:19] LABS: PCO2(98.6) 14 mmHg (35-45)
[2019-02-08 12:32] LABS: BASO# 0.02 X1000 (0.0-0.2); BASO% 0.4 % (0.0-0.8); EOS# 0.01 X1000 (0.0-0.7); EOS% 0.2 % (0.0-10.0); HEMATOCRIT 44.3 % (37.0-47.0); HEMOGLOBIN 14.6 g/dL (12.0-16.0); IMM GRAN# 0.02 X1000 (0.0-0.04); IMM GRAN% 0.4 % (0.0-0.5); LYMPH# 1.13 X1000 (1.2-3.4); LYMPH% 21.9 % (20.5-51.1); MCH 30.2 PG (27-31); MCV 91.7 FL (81-99); MONO# 0.17 X1000 (0.11-0.59); MONO% 3.3 % (1.7-9.3); MPV 10.6 FL (7.4-10.4); NEUT# 3.81 X1000 (1.4-6.5); NEUT% 73.8 % (42.2-75.2); PLT 253 X1000 (130-400); RBC 4.83 XMIL (4.2-5.4); RDW 12.4 % (11.5-14.5); WBC 5.16 X1000 (4.8-10.8)
[2019-02-08 12:56] LABS: URINE SOURCE CLEAN CATCH
[2019-02-08 13:05] LABS: BILIRUBIN URINE NEGATIVE (NEGATIVE); BLOOD URINE SMALL (NEGATIVE); COLOR YELLOW; GLUCOSE URINE >1000 mg/dL (NEGATIVE); KETONE URINE >150 mg/dL (NEGATIVE); LEUKOCYTES URINE NEGATIVE (NEGATIVE); NITRITE URINE NEGATIVE (NEGATIVE); PH URINE 5.5; PROTEIN URINE 50 mg/dL (NEGATIVE); SP GRAVITY URINE 1.024; TURBIDITY URINE CLEAR (CLEAR); UROBILINOGEN URINE NORMAL (NORMAL)
[2019-02-08 13:06] LABS: ALB/GLOB RATIO 1.4; ALBUMIN 4.5 g/dL (3.5-5.0); CALCIUM 9.4 mg/dL (8.8-10.2); CREATININE 1.5 mg/dL (0.5-0.9); TOTAL BILIRUBIN 0.37 mg/dL (0.20-1.00); TOTAL PROTEIN 7.8 g/dL (6.3-8.3)
[2019-02-08 13:07] LABS: UR EPITHELIAL CELLS <10 /HPF (<10); URINE BACTERIA NEGATIVE /HPF; URINE RBC <10 /HPF (<10); URINE WBC <10 /HPF (<10)
[2019-02-08 13:07] LABS: POTASSIUM 4.7 mmol/L (3.5-5.1)
[2019-02-08] MEDS ORDERED: HUMULIN R IV ONE ×2 (13:11→13:52)
--- NOTE | 2019-02-08 13:18 | Diag Imaging Result Doc PS360 ---
CHEST-2 VIEWS - 02/08/2019 INDICATION: fever COMPARISON: 07/20/2018 FINDINGS: The lungs are normally expanded and clear. Heart size and mediastinal contours are normal. No pneumothorax or pleural effusion. IMPRESSION: Negative exam. Electronically signed by Nate Heredia 02/08/2019 1:16 PM
[2019-02-08 13:25] LABS: CK INDEX 2.5 (0.0-2.5); CK-MB 6.15 ng/mL (0.0-5.0)
[2019-02-08] MEDS ORDERED: D50W SYRINGE IV PRN (13:52)
--- NOTE | 2019-02-08 13:59 | PROVIDER DOCUMENTATION ---
This chart was entered by Kassandra Kruger Scribe, acting as scribe for Derek Barry DO. HPI-General Adult - General Stated Complaint: HEADACHE Time Seen by Provider: 02/08/19 11:24 Source: patient Allergies/Adverse Reactions: Patient Allergies Allergy/AdvReac Type Severity Reaction Status Date / Time Tetracyclines Allergy Severe RASH, SOB Verified 02/08/19 12:12 tigecycline [From Tygacil] Allergy Severe RASH, SOB Verified 02/08/19 12:12 Home Medications: Home Medication List Medication Instructions Recorded Confirmed Last Taken Type Pregabalin [Lyrica] 75 mg PO BID 03/19/17 02/08/19 01/12/19 History 75 MG Insulin Glargine [Lantus] 35 unit SUBQ QHS #1 insuln.pen 07/22/18 02/08/19 02/07/19 Rx 35 UNIT Insulin Lispro [Humalog] 10 unit SQ TID #1 cartridge 07/22/18 02/08/19 02/07/19 Rx 10 UNIT Gabapentin 300 mg PO BID 01/11/19 02/08/19 01/12/19 History 300 MG - History of Present Illness -Gen Adult Nature of Presenting Problems: Patient is a 54 year old female who presents to the ED via EMS with headache, nausea and vomiting. States nausea and vomiting has been intermittent for 4 days and headache started this morning. EMS states patient's FSBS was 458. Patient states she has been taking her insulin. Denies diarrhea. Location of Pain/Injury: reports: head Pain Radiation: reports: no radiation Quality of Pain: reports: dull Severity: reports: mild Onset/Duration: reports: gradual Timing: reports: still present, getting worse Context/Activities at Onset: reports: light activity Associated Symptoms: reports: nausea, vomiting Similar Symptoms Previously?: Yes Recently seen or treated by another doctor?: No - Diabetes Related Context Context: reports: high blood sugar (458) Review of Systems - Adult - REVIEW OF SYSTEMS - ADULT Constitutional: reports: no symptoms reported. denies: chills, fever, fatique Eyes: reports: no symptoms reported Ears, Nose, Mouth & Throat: reports: no symptoms reported Cardiovascular: reports: no symptoms reported Respiratory: reports: no symptoms reported Gastrointestinal: reports: see HPI, nausea, vomiting. denies: abdominal pain, diarrhea Genitourinary: reports: no symptoms reported Musculoskeletal: reports: no symptoms reported Integumentary: reports: no symptoms reported Neurological: reports: see HPI, headache/migraines ([place]). denies: dizziness/vertigo, syncope Psychiatric: reports: no symptoms reported Endocrine: reports: no symptoms reported Hematologic/Lymphatic: reports: no symptoms reported Allergic/Immunologic: reports: no symptoms reported All Other Systems: Reviewed and Negative Past History - Adult - PAST MEDICAL HISTORY-ADULT Review of Records: reports: Old Records Reviewed, Nursing Assessment Review, Medications Reviewed, Social history reviewed & non-contributory. Major Childhood Illnesses: reports: denies history Cardiovascular: reports: HTN Respiratory: reports: denies history Gastrointestinal: reports: denies history Obstetrical/Gynecological: reports: denies history Genitourinary: reports: dialysis, kidney disease Musculoskeletal: reports: denies history Neurological: reports: denies history Endocrine/Immune: reports: Diabetes Other Conditions: reports: denies history - PRIOR SURGERIES/PROCEDURES Surgical/Procedure History: reports: , other (cyst removed from left leg) - PRIOR HOSPITALIZATIONS Prior Hospitalizations: reports: none - IMMUNIZATION STATUS Childhood Immunizations: See Nurse Assessment Flu Vaccine: See Nurse Assessment - FAMILY HISTORY Family History: reviewed, not pertinent - SOCIAL HISTORY Smoking: denies Substance Use: denies Physical Exam-General - PHYSICAL EXAM-ADULT Initial Vital Signs Reviewed: Yes - CONSTITUTIONAL General Appearance: alert, no apparent distress. negative: lethargic - EYES Eyes: PERRL/EOMI, pink conjunctivae. negative: sunken eyes - HEAD, EARS, NOSE, MOUTH & THROAT HENMT: normocephalic/atraumatic, moist mucous membranes. negative: angioedema - RESPIRATORY Respiratory: chest non-tender, lungs clear, normal breath sounds. negative: rales, stridor - CARDIOVASCULAR Cardiovascular: normal peripheral pulses, regular rate, rhythm. negative: tachycardia - GASTROINTESTINAL (ABDOMEN) Abdominal Exam: normal bowel sounds, soft, tenderness (diffuse). negative: guarding - MUSCULOSKELETAL Extremity: non-tender, normal inspection. negative: deformity - SKIN Integumentary: normal color, normal turgor, warm/dry. negative: diaphoresis, rash - NEUROLOGIC Neurologic: grossly normal. negative: aphasia, facial droop - PSYCHIATRIC Psych/Mental Status: normal mood/affect, oriented x 3. negative: anxious Progress - PLAN OF CARE/RESULTS Progress/Plan/Lab Results: Laboratory Results - last 24 hr 02/08/19 11:28 POC Glucose 459 H Result Diagrams: 02/08/19 12:21 02/08/19 12:21 - XRAY 1 XRAY Study: Chest Impression: See EMR Report ( CHEST-2 VIEWS - 02/08/2019 INDICATION: fever COMPARISON: 07/20/2018 FINDINGS: The lungs are normally expanded and clear. Heart size and mediastinal contours are normal. No pneumothorax or pleural effusion. IMPRESSION: Negative exam. Electronically signed by Nate Heredia 02/08/2019 1:16 PM 02/08/19 1316 Interpreting Physician: Nate Heredia MD Dictated Date/Time: 02/08/19 1315 cc: Derek Barry DO; Georgi Avery MD) - CONSULTS/PCP/HOSPITALIST Notification #1 *Consult/PCP/Hospitalist*: DONAVON Barbour for Hospitalist Time Discussed: 13:58 Reason/Comments: Dr. Barry consulted with Angle about patient. Consult Disposition: Will see in ED, Admit Departure - Departure Date of Disposition Decision: 02/08/19 Time of Disposition Decision: 13:58 DIAGNOSIS: DKA (diabetic ketoacidoses) Disposition: ADMITTED INPATIENT 09 Certified Medical Emergency: Emergent Condition: Fair Referrals and Follow-Ups: Georgi Avery MD [Primary Care Provider] - - Critical Care Note This patient required my direct & personal management of CC.: Yes Total Time (mins): 33 Critical Care Statement: This patient required my direct personal management to treat or rule out processes, the absence of which, could potentiallly result in sudden, clinically significant life or limb threatening deterioration. Attestation - Physician/ LUIS MANUEL Attestation The physician spent face to face time with patient:: Yes Advanced Practice Provider documentation review:: Supervising physician onsite and consulted in the evaluation and care of this patient. The physician did have a face to face encounter with the patient. This chart was documented by the indicated scribe, (Kassandra Kruger Scribe) and accurately reflects the services I performed and decisions made by me, Derek Barry DO, as attested by the provider's signature.
[2019-02-08] MEDS ORDERED: HUMULIN R 100 UNIT in NS 100 ML IV SCH (14:00)
[2019-02-08] MEDS ORDERED: SODIUM PHOSPHATE 30 MMOL in D5W 250 ML IV PRN (14:10)
[2019-02-08] MEDS ORDERED: POTASSIUM CHLORIDE 20% LIQUID PO PRN (14:10)
[2019-02-08] MEDS ORDERED: SODIUM BICARBONATE 8.4% 100 MEQ in STERILE WATER INJ. 500 ML IV PRN (14:10)
[2019-02-08] MEDS ORDERED: POTASSIUM CHLORIDE 20 MEQ in NS 100 ML IV PRN (14:10)
[2019-02-08] MEDS ORDERED: D5 NS 1,000 ML IV PRN (14:10)
[2019-02-08] MEDS ORDERED: MAGNESIUM SULFATE 2 GM/S.W.I. 2 GM/50 ML IVPB IV PRN (14:10)
--- NOTE | 2019-02-08 14:33 | HISTORY AND PHYSICAL ---
HISTORY OF PRESENT ILLNESS: Ms. Pandya says she started feeling bad about 2 days ago, just more nausea and could not eat. She did not take her insulin this morning, but she reports she has been taking her insulin before then. PAST MEDICAL HISTORY: 1. She has a history of diabetes mellitus type 2, which she says she has had for over 20 years. 2. She has a history of chronic pain disorder. 3. Neuropathy. 4. History of kidney failure. She has been on dialysis a couple different times. 5. Frequent admissions for DKA. 6. She was evaluated for thrombocytopenia at one point. PAST SURGICAL HISTORY: Believed to have vascular access in the past for dialysis. FAMILY HISTORY: Unobtainable, but she says that she does not know of any significant family problems. SOCIAL HISTORY: She has a brother who has power of family law attorney. REVIEW OF SYSTEMS: She says she has not been able to eat, not sure how much weight she has lost, but she just does not have much appetite, especially since the last couple of days. No change in visual or hearing acuity.Respiratory: No increased work of breathing or dyspnea. Cardiovascular: No chest pain or tachy palpitation. GI: Nausea and early satiety. PHYSICAL EXAMINATION: VITAL SIGNS: Temperature is 98, pulse 102, respirations 20, blood pressure 147/94. Height is 5 feet 5 inches. HEENT: Pupils are equal and round. LUNGS: Clear in all lung meyer. CARDIOVASCULAR: Regular rhythm and rate without murmur or S3. ABDOMEN: Soft. SKIN: Warm and dry. LABORATORY DATA: White count 5160, hematocrit 44, platelet count 253,000. Sodium 130, potassium 4.7, chloride 97, BUN is 25, creatinine 1.5, calcium is 9.4, blood sugar 525. A blood gas showed pH is 7.10, pCO2 is 14, PO2 is 110, her sat is 96 on FiO2 of room air 21%. Chest x-ray is negative exam, no infiltrate. ASSESSMENT/PLAN: 1. Diabetic ketoacidosis. Apparently she has had this before. We will put her on the insulin protocol. Give her some fluids and see if the acidosis can be driven down. Right now, she is nauseated. I will put her on some clear liquids. We will check her hemoglobin A1c in the morning. We will check a T4, TSH, a.m. cortisol level, B12, folate. 2. Apparently has a history of chronic pain disorder and neuropathy. 3. She has had trouble with renal dysfunction before. Her creatinine is 1.5, which is encouraging. We will follow that. Looking at her previous creatinine, her baseline is 0.9 or 0.8, which was back in 12/2018. cc: Calos Schulz MD
[2019-02-08 14:38] LABS: ALLEN TEST YES; BE -23.7 mmoll (-3.0-3.0); BLOOD TYPE ARTERIAL; HCO3-(ACT) 6.4 mmoll (20.0-26.0); METHB 1.6 % (0.0-1.5); O2(CT) 19.3 mL/dL (15.0-23.0); O2HB 96.1 % (95.0-99.0); PO2(98.6) 117 mmHg (60-100); SAMPLE BLOOD; THB 14.2 g/dL (11.5-17.4)
[2019-02-08 14:40] LABS: PCO2(98.6) 13 mmHg (35-45); pH(98.6) 7.09 (7.35-7.45)
[2019-02-08 14:41] LABS: HEMOGLOBIN A1C 12.7 % (4.8-6.0)
[2019-02-08 14:52] LABS: URINE SOURCE CATH
[2019-02-08 15:07] LABS: BILIRUBIN URINE NEGATIVE (NEGATIVE); BLOOD URINE SMALL (NEGATIVE); COLOR YELLOW; GLUCOSE URINE >1000 mg/dL (NEGATIVE); KETONE URINE >150 mg/dL (NEGATIVE); LEUKOCYTES URINE NEGATIVE (NEGATIVE); NITRITE URINE NEGATIVE (NEGATIVE); PH URINE 5.5; PROTEIN URINE 30 mg/dL (NEGATIVE); TURBIDITY URINE CLEAR (CLEAR); UR AMPHETAMINES QUAL NONE DETECTED (NONE DETECT); UR BARBITUATES QUAL NONE DETECTED (NONE DETECT); UR BENZODIAZEPIN QUAL NONE DETECTED (NONE DETECT); UR CANNABINOIDS QUAL NONE DETECTED (NONE DETECT); UR COCAINE QUAL NONE DETECTED (NONE DETECT); UR METHADONE QUAL NONE DETECTED (NONE DETECT); UR OPIATES QUAL NONE DETECTED (NONE DETECT); UR OXYCODONE QUAL NONE DETECTED (NONE DETECT); UR PCP QUAL NONE DETECTED (NONE DETECT); UROBILINOGEN URINE NORMAL (NORMAL)
[2019-02-08 15:08] LABS: UR EPITHELIAL CELLS <10 /HPF (<10); URINE BACTERIA 1+ /HPF; URINE RBC <10 /HPF (<10); URINE WBC <10 /HPF (<10)
[2019-02-08] MEDS: NS 1,000 ML IV SCH ×2 (15:08→21:14)
[2019-02-08 15:27] LABS: AMYLASE 37 U/L (20-200); CK TOTAL 226 U/L (24-173); LIPASE 26 U/L (13-60)
[2019-02-08 15:34] LABS: CREATININE 1.2 mg/dL (0.5-0.9); MAGNESIUM 2.1 mg/dL (1.5-2.7); PHOSPHORUS 3.2 mg/dL (2.7-4.5); POTASSIUM 3.7 mmol/L (3.5-5.1)
[2019-02-08 15:41] LABS: ACETONE SERUM SMALL (NEGATIVE)
[2019-02-08 16:42] LABS: ALLEN TEST YES; BE -18.4 mmoll (-3.0-3.0); BLOOD TYPE ARTERIAL; HCO3-(ACT) 10.6 mmoll (20.0-26.0); O2(CT) 19.4 mL/dL (15.0-23.0); O2HB 96.6 % (95.0-99.0); PO2(98.6) 108 mmHg (60-100); SAMPLE BLOOD; THB 14.2 g/dL (11.5-17.4)
[2019-02-08 16:43] LABS: PCO2(98.6) 19 mmHg (35-45)
[2019-02-08] MEDS: POTASSIUM CHLORIDE 10% LIQUID PO PRN ×3 (17:05→23:09)
[2019-02-08] MEDS: NORCO-7.5 PO PRN (17:41)
[2019-02-08 18:43] LABS: ALLEN TEST NO; BE -20.8 mmoll (-3.0-3.0); BLOOD TYPE ARTERIAL; HCO3-(ACT) 8.7 mmoll (20.0-26.0); METHB 1.1 % (0.0-1.5); O2(CT) 19.2 mL/dL (15.0-23.0); O2HB 96.8 % (95.0-99.0); PO2(98.6) 113 mmHg (60-100); SAMPLE BLOOD; SAO2 99.4 % (95.0-100.0)
[2019-02-08 18:45] LABS: PHOSPHORUS 2.6 mg/dL (2.7-4.5)
[2019-02-08 18:45] LABS: pH(98.6) 7.15 (7.35-7.45)
[2019-02-08 18:46] LABS: PCO2(98.6) 17 mmHg (35-45)
[2019-02-08 18:58] LABS: CALCIUM 8.9 mg/dL (8.8-10.2); CREATININE 1.3 mg/dL (0.5-0.9); POTASSIUM 4.2 mmol/L (3.5-5.1)
[2019-02-08] MEDS: NEURONTIN PO SCH (21:13)
[2019-02-08] MEDS: LYRICA PO SCH (21:13)
[2019-02-08 22:07] LABS: ALLEN TEST YES; BE -12.8 mmoll (-3.0-3.0); BLOOD TYPE ARTERIAL; HCO3-(ACT) 14.9 mmoll (20.0-26.0); METHB 1.4 % (0.0-1.5); O2(CT) 17.2 mL/dL (15.0-23.0); O2HB 96.4 % (95.0-99.0); PCO2(98.6) 22 mmHg (35-45); PO2(98.6) 109 mmHg (60-100); SAMPLE BLOOD; SAO2 99.3 % (95.0-100.0); THB 12.6 g/dL (11.5-17.4); pH(98.6) 7.32 (7.35-7.45)
[2019-02-08 22:08] LABS: MODALITY ROOM AIR
[2019-02-08 22:36] LABS: MAGNESIUM 1.7 mg/dL (1.5-2.7); PHOSPHORUS 1.9 mg/dL (2.7-4.5)
[2019-02-08 22:55] LABS: CALCIUM 8.5 mg/dL (8.8-10.2); POTASSIUM 4.5 mmol/L (3.5-5.1)
[2019-02-09 00:15] LABS: ALLEN TEST YES; BE -9.7 mmoll (-3.0-3.0); BLOOD TYPE ARTERIAL; HCO3-(ACT) 17.4 mmoll (20.0-26.0); METHB 0.8 % (0.0-1.5); O2(CT) 16.9 mL/dL (15.0-23.0); O2HB 97.1 % (95.0-99.0); PCO2(98.6) 27 mmHg (35-45); PO2(98.6) 109 mmHg (60-100); SAMPLE BLOOD; SAO2 99.5 % (95.0-100.0); THB 12.3 g/dL (11.5-17.4); pH(98.6) 7.34 (7.35-7.45)
[2019-02-09 00:16] LABS: MODALITY ROOM AIR
[2019-02-09 02:36] LABS: ALLEN TEST NO; BE -11.4 mmoll (-3.0-3.0); BLOOD TYPE ARTERIAL; METHB 1.2 % (0.0-1.5); O2(CT) 17.3 mL/dL (15.0-23.0); O2HB 96.5 % (95.0-99.0); PCO2(98.6) 24 mmHg (35-45); PO2(98.6) 115 mmHg (60-100); SAMPLE BLOOD; SAO2 99.2 % (95.0-100.0); THB 12.6 g/dL (11.5-17.4); pH(98.6) 7.33 (7.35-7.45)
[2019-02-09 02:38] LABS: MODALITY ROOM AIR
[2019-02-09 03:42] LABS: ESTIMATED GFR > 60
[2019-02-09 03:56] LABS: AGAP 12; BUN 15 mg/dL (8-22); CALCIUM 8.6 mg/dL (8.8-10.2); CHLORIDE 107 mmol/L (98-107); COSMO 265; CREATININE 0.8 mg/dL (0.5-0.9); GLUCOSE 133 mg/dL (70-104); MAGNESIUM 2.2 mg/dL (1.5-2.7); PHOSPHORUS 1.8 mg/dL (2.7-4.5); POTASSIUM 4.1 mmol/L (3.5-5.1); SODIUM 131 mmol/L (136-145); TCO2 12 mmol/L (25-35)
[2019-02-09] MEDS: POTASSIUM CHLORIDE 10% LIQUID PO PRN (04:54)
[2019-02-09] MEDS: NS 1,000 ML IV SCH ×4 (05:48→23:40)
[2019-02-09 06:39] LABS: INR 1.1; PROTIME 14.3 Seconds (11.0-16.0); PTT 24.3 Seconds (22.3-41.8)
[2019-02-09 06:47] LABS: BASO# 0.02 X1000 (0.0-0.2); BASO% 0.4 % (0.0-0.8); EOS# 0.12 X1000 (0.0-0.7); EOS% 2.6 % (0.0-10.0); HEMATOCRIT 34.1 % (37.0-47.0); HEMOGLOBIN 11.6 g/dL (12.0-16.0); LYMPH# 1.68 X1000 (1.2-3.4); LYMPH% 36.7 % (20.5-51.1); MCH 30.7 PG (27-31); MCV 90.2 FL (81-99); MONO# 0.31 X1000 (0.11-0.59); MONO% 6.8 % (1.7-9.3); MPV 10.6 FL (7.4-10.4); NEUT# 2.45 X1000 (1.4-6.5); NEUT% 53.5 % (42.2-75.2); PLT 227 X1000 (130-400); RBC 3.78 XMIL (4.2-5.4); RDW 12.2 % (11.5-14.5); WBC 4.58 X1000 (4.8-10.8)
[2019-02-09 06:55] LABS: ESTIMATED GFR > 60
[2019-02-09 07:03] LABS: AGAP 13; BUN 14 mg/dL (8-22); CALCIUM 8.5 mg/dL (8.8-10.2); CHLORIDE 107 mmol/L (98-107); COSMO 269; CREATININE 0.9 mg/dL (0.5-0.9); GLUCOSE 137 mg/dL (70-104); MAGNESIUM 2.1 mg/dL (1.5-2.7); PHOSPHORUS 1.9 mg/dL (2.7-4.5); POTASSIUM 4.2 mmol/L (3.5-5.1); SODIUM 133 mmol/L (136-145); TCO2 13 mmol/L (25-35)
[2019-02-09] MEDS: HUMALOG SUBQ SCH ×5 (07:06→19:59)
--- NOTE | 2019-02-09 07:12 | EKG Report ---
Test Performed on : 02/09/2019 06:54:41 AM Test Reason : dka Blood Pressure : / mmHG Vent. Rate : 075 BPM Atrial Rate : 075 BPM P-R Int : 184 ms QRS Dur : 084 ms QT Int : 402 ms P-R-T Axes : 041 009 050 degrees QTc Int : 448 ms Normal sinus rhythm. Possible Left atrial enlargement Borderline ECG When compared with ECG of 20-JUL-2018 20:25, T wave amplitude has decreased in Anterior leads Confirmed by Eric Lam MD ([id number]) on 02/10/2019 12:06:19 PM
[2019-02-09] MEDS ORDERED: SODIUM PHOSPHATE 10 MMOL in NS 250 ML IV ONE (07:45)
[2019-02-09] MEDS: LYRICA PO SCH ×2 (08:14→20:00)
[2019-02-09] MEDS: NEURONTIN PO SCH ×2 (08:14→20:00)
[2019-02-09] MEDS: LOVENOX SUBQ SCH (08:14)
[2019-02-09] MEDS: ZOFRAN IV PRN (11:20)
--- NOTE | 2019-02-09 13:30 | PROGRESS NOTE ---
DATE: 02/09/2019 SUBJECTIVE: Ms. Pandya is resting comfortably. Her acidosis has improved. OBJECTIVE: Vital Signs: Temperature 98.5 degrees, pulse 84, respirations 22, blood pressure 130/85. Eyes: Pupils are equal and round. Lungs: Clear in all lung meyer. Cardiovascular: Regular rhythm and rate without murmur or S3. Urine output: 1900 mL. DIAGNOSTIC STUDIES: White count 4580, hematocrit is 35.4, hemoglobin 11, platelet count 227,000. Chemistry: Sodium 133, potassium 4.2, chloride 107, BUN 14, creatinine 0.9, blood sugars 128, 138, and 408. Magnesium 2.1. TSH was 6.41. ASSESSMENT AND PLAN: Diabetic ketoacidosis, improving. Continue IV insulin. Her blood sugars have come down nicely, so switch her to sliding scale. She is on diabetic diet. We have given her a little bit of bicarbonate. cc: Calos Schulz MD
[2019-02-09] MEDS ORDERED: LANTUS INSULIN SUBQ SCH (21:00)
[2019-02-10 05:20] LABS: AGAP 8; BUN 13 mg/dL (8-22); CALCIUM 8.7 mg/dL (8.8-10.2); CHLORIDE 110 mmol/L (98-107); COSMO 280; CREATININE 0.9 mg/dL (0.5-0.9); ESTIMATED GFR > 60; GLUCOSE 210 mg/dL (70-104); POTASSIUM 3.8 mmol/L (3.5-5.1); SODIUM 137 mmol/L (136-145); TCO2 19 mmol/L (25-35)
[2019-02-10] MEDS: HUMALOG SUBQ SCH (06:03)
[2019-02-10] MEDS ORDERED: INSULIN PEN NEEDLES ONE (06:17)
[2019-02-10] MEDS ORDERED: HUMULIN 70/30 SUBQ SCH ×2 (07:00→16:00)
[2019-02-10 07:07] LABS: HEMATOCRIT 36.2 % (37.0-47.0); MCH 30.1 PG (27-31); MCHC 33.1 g/dL (33-37); MCV 90.7 FL (81-99); MPV 10.8 FL (7.4-10.4); RBC 3.99 XMIL (4.2-5.4); RDW 12.5 % (11.5-14.5); WBC 3.36 X1000 (4.8-10.8)
[2019-02-10 07:18] LABS: AGAP 12; ALBUMIN 3.4 g/dL (3.5-5.0); BUN 13 mg/dL (8-22); CALCIUM 8.8 mg/dL (8.8-10.2); CHLORIDE 109 mmol/L (98-107); COSMO 280; CREATININE 0.9 mg/dL (0.5-0.9); ESTIMATED GFR > 60; GLUCOSE 212 mg/dL (70-104); PHOSPHORUS 2.7 mg/dL (2.7-4.5); POTASSIUM 3.9 mmol/L (3.5-5.1); SODIUM 137 mmol/L (136-145); TCO2 16 mmol/L (25-35)
[2019-02-10] MEDS: NS 1,000 ML IV SCH (07:35)
[2019-02-10] MEDS: NEURONTIN PO SCH ×2 (08:49→20:24)
[2019-02-10] MEDS: LYRICA PO SCH (08:50)
[2019-02-10] MEDS: LOVENOX SUBQ SCH (08:50)
[2019-02-10] MEDS: ZOFRAN IV PRN ×2 (08:52→20:25)
[2019-02-10] MEDS: CULTURELLE PO SCH (10:17)
[2019-02-10] MEDS: KEFLEX PO SCH ×2 (10:17→20:24)
[2019-02-10] MEDS: TOPAMAX PO SCH (10:17)
[2019-02-10] MEDS: LEVEMIR SUBQ SCH ×2 (10:46→20:22)
[2019-02-10] MEDS: HUMULIN R SUBQ SCH ×3 (11:05→20:24)
[2019-02-10] MEDS: PRINIVIL PO SCH (11:09)
--- NOTE | 2019-02-10 11:12 | PROGRESS NOTE ---
DATE: 02/10/2019 SUBJECTIVE: The patient is resting comfortably in bed. She has no complaints at this time. No acute events noted overnight. OBJECTIVE: Vital Signs: Temperature 97.8 degrees, blood pressure 141/88, heart rate 76, respirations 19, O2 saturation is 100% on room air. General: This is a morbidly obese female, lying in bed in no acute distress. Heart: S1, S2 normal. Regular rate and rhythm. Lungs: Clear to auscultation bilaterally. No wheezing. No rales. No rhonchi. Abdomen: Positive bowel sounds. Soft, nontender, nondistended. Extremities: The patient has a small ulceration on her great toe with some peeling also and mild erythema around the ulceration. Neurologic: The patient is alert and oriented x4. DIAGNOSTIC STUDIES: White blood cell count 3.3, hemoglobin 12, hematocrit 36, platelets 177,000. Sodium 137, potassium 3.9, chloride 109, CO2 of 16, BUN 13, creatinine 0.9, glucose 212. ASSESSMENT AND PLAN: 1. Diabetic ketoacidosis. Resolved. 2. Uncontrolled insulin-dependent diabetes mellitus. We will start the patient on Levemir 40 units subcutaneous twice a day. We will continue with premeal insulin as well and monitor the patient's blood sugars. We will also consult with the dietitian. 3. Morbid obesity. The patient has been counseled about weight loss and proper diet. 4. Metabolic acidosis. Improved. 5. Hypertension. We will add lisinopril. 6. Diabetic neuropathy. Continue on Neurontin. 7. Migraine headaches. We will start the patient on Topamax. 8. Right great toe ulceration. The patient has been started on Keflex. We will monitor closely. We will also consult with Wound Care. 9. Deep vein thrombosis prophylaxis. Continue on Lovenox. DISPOSITION: The patient is stable for transfer to the medical floor. cc: Charley Madrigal MD
[2019-02-10] MEDS: SANTYL OINT TOP SCH (17:21)
[2019-02-10] MEDS: NORCO-7.5 PO PRN (20:23)
[2019-02-11] MEDS: TYLENOL PO PRN (00:13)
[2019-02-11] MEDS: HUMULIN R SUBQ SCH ×4 (06:14→21:35)
[2019-02-11 07:47] LABS: HEMATOCRIT 40.2 % (37.0-47.0); HEMOGLOBIN 13.4 g/dL (12.0-16.0); MCH 30.9 PG (27-31); MCHC 33.3 g/dL (33-37); MCV 92.6 FL (81-99); RBC 4.34 XMIL (4.2-5.4); RDW 12.8 % (11.5-14.5); WBC 6.74 X1000 (4.8-10.8)
[2019-02-11 08:31] LABS: AGAP 10; ALBUMIN 3.4 g/dL (3.5-5.0); BUN 16 mg/dL (8-22); CALCIUM 9.3 mg/dL (8.8-10.2); CHLORIDE 108 mmol/L (98-107); COSMO 280; CREATININE 0.9 mg/dL (0.5-0.9); ESTIMATED GFR > 60; GLUCOSE 124 mg/dL (70-104); PHOSPHORUS 3.1 mg/dL (2.7-4.5); POTASSIUM 3.3 mmol/L (3.5-5.1); SODIUM 139 mmol/L (136-145); TCO2 21 mmol/L (25-35)
[2019-02-11] MEDS: LOVENOX SUBQ SCH (08:47)
[2019-02-11] MEDS: PRINIVIL PO SCH (08:47)
[2019-02-11] MEDS: NEURONTIN PO SCH ×2 (08:47→21:34)
[2019-02-11] MEDS: KEFLEX PO SCH ×2 (08:47→21:34)
[2019-02-11] MEDS: CULTURELLE PO SCH (08:47)
[2019-02-11] MEDS: TOPAMAX PO SCH (08:47)
[2019-02-11] MEDS ORDERED: LEVEMIR SUBQ SCH ×2 (09:00)
[2019-02-11] MEDS ORDERED: KLOR-CON PO ONE (09:40)
--- NOTE | 2019-02-11 14:07 | PROGRESS NOTE ---
DATE: 02/11/2019 SUBJECTIVE: The patient is resting comfortably in bed. No acute events noted overnight. The patient's blood sugar did drop this morning. OBJECTIVE: Vital Signs: Temperature 97.6 degrees, blood pressure 120/87, heart rate 71, respirations 18, O2 saturations 100% on room air. General: This is a morbidly obese female, lying in bed in no acute distress. Heart: S1, S2 normal. Regular rate and rhythm. Lungs: Equal air entry bilaterally. No wheezing. No rales. No rhonchi. Abdomen: Positive bowel sounds. Soft, nontender, nondistended. Extremities: No edema. No cyanosis. Neurologic: The patient is alert and oriented x4. LABORATORY DATA: Reviewed. ASSESSMENT AND PLAN: 1. Diabetic ketoacidosis. Resolved. 2. Uncontrolled insulin-dependent diabetes mellitus. We will start the patient on Levemir 40 units subcutaneous every morning. We will monitor her blood glucose closely. 3. Morbid obesity. The patient has been counseled about weight loss and proper diet. 4. Hypertension. Improved. Continue on lisinopril. 5. Neuropathy. Continue on gabapentin. 6. Right great toe ulceration. Continue on Keflex and wound care. 7. Migraine headaches. Continue on Topamax. 8. Deep vein thrombosis prophylaxis. Continue on Lovenox. 9. Disposition. The patient should be stable for discharge home tomorrow. cc: Charley Madrigal MD
[2019-02-11] MEDS: SANTYL OINT TOP SCH (16:28)
[2019-02-12] MEDS: HUMULIN R SUBQ SCH ×3 (00:30→11:10)
[2019-02-12 06:50] LABS: HEMATOCRIT 33.1 % (37.0-47.0); MCH 30.7 PG (27-31); MCHC 33.2 g/dL (33-37); MCV 92.5 FL (81-99); RBC 3.58 XMIL (4.2-5.4); RDW 12.6 % (11.5-14.5); WBC 2.89 X1000 (4.8-10.8)
[2019-02-12 07:06] LABS: AGAP 10; BUN 15 mg/dL (8-22); CALCIUM 7.8 mg/dL (8.8-10.2); CHLORIDE 107 mmol/L (98-107); COSMO 292; CREATININE 0.7 mg/dL (0.5-0.9); ESTIMATED GFR > 60; GLUCOSE 335 mg/dL (70-104); POTASSIUM 3.9 mmol/L (3.5-5.1); SODIUM 139 mmol/L (136-145); TCO2 22 mmol/L (25-35)
[2019-02-12] MEDS ORDERED: INSULIN PEN NEEDLES ONE (07:54)
[2019-02-12] MEDS: KEFLEX PO SCH ×2 (09:24→21:39)
[2019-02-12] MEDS: LOVENOX SUBQ SCH (09:25)
[2019-02-12] MEDS: CULTURELLE PO SCH (09:25)
[2019-02-12] MEDS: TOPAMAX PO SCH (09:25)
[2019-02-12] MEDS: NEURONTIN PO SCH ×2 (09:25→21:40)
[2019-02-12] MEDS: PRINIVIL PO SCH (09:25)
[2019-02-12] MEDS: LEVEMIR SUBQ SCH (09:28)
[2019-02-12] MEDS: SANTYL OINT TOP SCH (09:29)
--- NOTE | 2019-02-12 10:45 | PROGRESS NOTE ---
DATE: 02/12/2019 SUBJECTIVE: The patient states that she feels okay. However, her blood sugars are still running in the 260s to 300s. OBJECTIVE: Vital Signs: Temperature 98.3 degrees, blood pressure 129/84, heart rate 99, respiratory rate 20, O2 saturation is 99% on room air. General: This is a morbidly obese female lying in bed, in no acute distress. Heart: S1, S2 normal. Regular rate and rhythm. Lungs: Clear to auscultation bilaterally. No wheezing. No rales. No rhonchi. Abdomen: Positive bowel sounds. Soft, obese, nontender, nondistended. Extremities: No edema. No cyanosis. Neurologic: The patient is alert and oriented x4. Labs: White blood cell count 2.8, hemoglobin 11, hematocrit 33, platelets 142,000. Sodium 139, potassium 3.9, glucose 335, BUN 15, creatinine 0.7, magnesium 1.8. ASSESSMENT AND PLAN: 1. Diabetic ketoacidosis. Resolved. 2. Uncontrolled insulin-dependent diabetes mellitus. We will continue with Levemir 40 units in the morning. We will also add premeal insulin and add Levemir 20 units at bedtime. 3. Hypertension. Controlled. Continue on lisinopril. 4. Morbid obesity. The patient has been counseled about weight loss and proper diet. 5. Neuropathy. Continue on gabapentin. 6. Right great toe ulceration. Continue on Keflex and wound care. 7. Migraine headache. Continue on Topamax. 8. Deep vein thrombosis prophylaxis. Continue on Lovenox. 9. Disposition. Hopefully, the patient's blood sugars will be improved and she can be discharged home tomorrow. cc: Charley Madrigal MD
[2019-02-12] MEDS: HUMALOG SUBQ SCH ×2 (11:10→16:36)
[2019-02-12] MEDS ORDERED: LEVEMIR SUBQ SCH (21:00)
[2019-02-12] MEDS: NORCO-7.5 PO PRN (21:40)
[2019-02-13] MEDS: HUMALOG SUBQ SCH ×3 (06:21→17:02)
[2019-02-13 06:42] LABS: AGAP 9; BUN 16 mg/dL (8-22); CALCIUM 9.5 mg/dL (8.8-10.2); CHLORIDE 107 mmol/L (98-107); COSMO 283; CREATININE 0.8 mg/dL (0.5-0.9); ESTIMATED GFR > 60; GLUCOSE 47 mg/dL (70-104); POTASSIUM 3.4 mmol/L (3.5-5.1); SODIUM 143 mmol/L (136-145); TCO2 27 mmol/L (25-35)
[2019-02-13] MEDS ORDERED: KLOR-CON PO ONE (06:52)
[2019-02-13] MEDS: KEFLEX PO SCH ×2 (08:29→21:11)
[2019-02-13] MEDS: NEURONTIN PO SCH ×2 (08:29→21:11)
[2019-02-13] MEDS: LEVEMIR SUBQ SCH (08:29)
[2019-02-13] MEDS: PRINIVIL PO SCH (08:29)
[2019-02-13] MEDS: CULTURELLE PO SCH (08:30)
[2019-02-13] MEDS: LOVENOX SUBQ SCH (08:30)
[2019-02-13] MEDS: TOPAMAX PO SCH (08:30)
[2019-02-13] MEDS: SANTYL OINT TOP SCH (08:33)
--- NOTE | 2019-02-13 13:11 | PROGRESS NOTE ---
DATE: 02/13/2019 SUBJECTIVE: The patient was noted to be hypoglycemic this morning with a blood sugar of 47. She did receive long-acting insulin last night. OBJECTIVE: Vital Signs: Temperature 97.4 degrees, blood pressure 122/76, heart rate 70, respirations 18, O2 saturation is 100% on room air. General: This is a morbidly obese female lying in bed in no acute distress. Heart: S1, S2 normal. Regular rate and rhythm. Lungs: Clear to auscultation bilaterally. Abdomen: Positive bowel sounds. Soft, nontender, nondistended. Extremities: No edema, no cyanosis. Neurologic: The patient is alert and oriented x4. LABORATORY DATA: Sodium 143, potassium 3.4, chloride 107, CO2 27, BUN 16, creatinine 0.8, glucose 47. ASSESSMENT AND PLAN: 1. Diabetic ketoacidosis. Resolved. 2. Poorly controlled insulin-dependent diabetes mellitus. We will continue on Levemir 40 units in the morning and premeal insulin. We will avoid long-acting insulin at night since the patient tends to become hypoglycemic. 3. Hypertension. Controlled. Continue on lisinopril. 4. Neuropathy. Continue on gabapentin. 5. Morbid obesity. The patient has been counseled about weight loss and proper diet. 6. Right great toe ulceration. Improved. Continue on Keflex and wound care. 7. Deep vein thrombosis prophylaxis. Continue on Lovenox. 8. Disposition. Fashion Director has been consulted for assistance with discharge planning. cc: Charley Madrigal MD
[2019-02-14] MEDS: HUMALOG SUBQ SCH ×3 (06:09→18:13)
[2019-02-14 07:29] LABS: MAGNESIUM 1.9 mg/dL (1.5-2.7); PHOSPHORUS 3.5 mg/dL (2.7-4.5)
[2019-02-14 07:30] LABS: AGAP 7; BUN 17 mg/dL (8-22); CHLORIDE 99 mmol/L (98-107); COSMO 282; CREATININE 0.8 mg/dL (0.5-0.9); ESTIMATED GFR > 60; POTASSIUM 4.6 mmol/L (3.5-5.1); SODIUM 131 mmol/L (136-145); TCO2 25 mmol/L (25-35)
[2019-02-14 07:49] LABS: GLUCOSE 412 mg/dL (70-104)
[2019-02-14] MEDS ORDERED: LEVEMIR SUBQ SCH (09:00)
[2019-02-14] MEDS: NEURONTIN PO SCH ×2 (09:22→21:12)
[2019-02-14] MEDS: TOPAMAX PO SCH (09:22)
[2019-02-14] MEDS: CULTURELLE PO SCH (09:22)
[2019-02-14] MEDS: KEFLEX PO SCH ×2 (09:22→21:12)
[2019-02-14] MEDS: PRINIVIL PO SCH (09:22)
[2019-02-14] MEDS: LOVENOX SUBQ SCH (09:23)
[2019-02-14] MEDS: SANTYL OINT TOP SCH (09:24)
[2019-02-14] MEDS ORDERED: HUMULIN R SUBQ SCH (16:00)
--- NOTE | 2019-02-14 16:45 | PROGRESS NOTE ---
DATE: 02/14/2019 SUBJECTIVE: The patient's blood sugar this morning was in 400s. OBJECTIVE: Vital Signs: Temperature 97.7 degrees, blood pressure 118/73, heart rate 73, respirations 20, O2 saturation 99% on room air. General: This is a elderly female lying in bed. Heart: S1, S2 normal. Regular rate and rhythm. Lungs: Clear to auscultation bilaterally. Abdomen: Positive bowel sounds. Soft, nontender, nondistended. Extremities: No edema, no cyanosis. Neuro: The patient is alert and oriented x4. LABS: Sodium 131, potassium 4.6, chloride 99, CO2 25, BUN 17, creatinine 0.8, glucose 412, magnesium 1.9, phos 3.5. ASSESSMENT AND PLAN: 1. Uncontrolled insulin-dependent diabetes mellitus. Will increase the a.m. Levemir dosage to 50 units. Will also increase the premeal insulin to 15 units before each meal. 2. Diabetic ketoacidosis. Resolved. 3. Hypertension. Controlled. Continue on lisinopril. 4. Neuropathy. Continue on gabapentin. 5. Right great toe ulceration. Continue on Keflex and wound care. 6. Morbid obesity. The patient has been counseled about weight loss and proper diet. 7. Deep vein thrombosis prophylaxis. Continue on Lovenox. 8. Disposition. [facility] is working on inpatient rehab placement for the patient. cc: Charley Madrigal MD MTDD
[2019-02-15] MEDS: HUMALOG SUBQ SCH ×3 (06:45→16:58)
[2019-02-15 06:49] LABS: AGAP 9; BUN 18 mg/dL (8-22); CALCIUM 8.7 mg/dL (8.8-10.2); CHLORIDE 105 mmol/L (98-107); COSMO 287; CREATININE 0.8 mg/dL (0.5-0.9); ESTIMATED GFR > 60; GLUCOSE 239 mg/dL (70-104); MAGNESIUM 1.9 mg/dL (1.5-2.7); SODIUM 139 mmol/L (136-145); TCO2 25 mmol/L (25-35)
[2019-02-15] MEDS ORDERED: HUMULIN R SUBQ SCH (07:00)
[2019-02-15] MEDS: NEURONTIN PO SCH ×2 (08:50→20:34)
[2019-02-15] MEDS: LOVENOX SUBQ SCH (08:50)
[2019-02-15] MEDS: KEFLEX PO SCH ×2 (08:50→20:34)
[2019-02-15] MEDS: CULTURELLE PO SCH (08:51)
[2019-02-15] MEDS: SANTYL OINT TOP SCH (08:51)
[2019-02-15] MEDS: PRINIVIL PO SCH (08:51)
[2019-02-15] MEDS: TOPAMAX PO SCH (08:51)
[2019-02-15] MEDS ORDERED: LEVEMIR SUBQ SCH (09:00)
[2019-02-15] MEDS: NORCO-7.5 PO PRN (10:18)
[2019-02-15] MEDS: HUMULIN R SUBQ SCH ×2 (11:41→16:58)
--- NOTE | 2019-02-15 14:08 | PROGRESS NOTE ---
DATE: 02/15/2019 SUBJECTIVE: The patient is resting comfortably in bed. No acute events noted overnight. OBJECTIVE: Vital Signs: Temperature 97.6 degrees, blood pressure 112/71, heart rate 59, respirations 18, O2 saturation 99% on room air. General: This is a morbidly obese female, lying in bed in no acute distress. Heart: S1, S2 normal. Regular rate and rhythm. Lungs: Clear to auscultation bilaterally. Abdomen: Positive bowel sounds. Soft, nontender, nondistended. Extremities: No edema. No cyanosis. Neurologic: The patient is alert and oriented x4. LABORATORY DATA: Sodium 139, potassium 4, chloride 105, CO2 of 25, BUN 18, creatinine 0.8, glucose 239. ASSESSMENT AND PLAN: 1. Uncontrolled insulin-dependent diabetes mellitus. We will increase the Levemir dosage to 55 units in the morning. Continue with premeal insulin. 2. Diabetic ketoacidosis. Resolved. 3. Hypertension. Controlled. 4. Diabetic neuropathy. Continue on gabapentin. 5. Right great toe ulceration. Improved. Continue on Keflex. 6. Morbid obesity. Aware. 7. Deep vein thrombosis prophylaxis. Continue on Lovenox. 8. Disposition. The patient will be discharged to inpatient rehab once a bed is available. cc: Charley Madrigal MD MTDD
[2019-02-16] MEDS: HUMULIN R SUBQ SCH (01:34)
[2019-02-16 06:29] LABS: BASO# 0.02 X1000 (0.0-0.2); BASO% 0.5 % (0.0-0.8); EOS% 2.7 % (0.0-10.0); HEMATOCRIT 36.5 % (37.0-47.0); HEMOGLOBIN 12.1 g/dL (12.0-16.0); LYMPH# 1.76 X1000 (1.2-3.4); LYMPH% 46.9 % (20.5-51.1); MCH 30.7 PG (27-31); MCHC 33.2 g/dL (33-37); MCV 92.6 FL (81-99); MONO# 0.44 X1000 (0.11-0.59); MONO% 11.7 % (1.7-9.3); MPV 10.3 FL (7.4-10.4); NEUT# 1.43 X1000 (1.4-6.5); NEUT% 38.2 % (42.2-75.2); PLT 152 X1000 (130-400); RBC 3.94 XMIL (4.2-5.4); RDW 12.5 % (11.5-14.5); WBC 3.75 X1000 (4.8-10.8)
[2019-02-16 06:53] LABS: AGAP 9; BUN 17 mg/dL (8-22); CALCIUM 8.5 mg/dL (8.8-10.2); CHLORIDE 102 mmol/L (98-107); COSMO 279; CREATININE 0.8 mg/dL (0.5-0.9); ESTIMATED GFR > 60; GLUCOSE 189 mg/dL (70-104); POTASSIUM 4.1 mmol/L (3.5-5.1); SODIUM 136 mmol/L (136-145); TCO2 25 mmol/L (25-35)
[2019-02-16] MEDS: HUMALOG SUBQ SCH ×3 (09:41→17:33)
[2019-02-16] MEDS: NEURONTIN PO SCH ×2 (09:42→20:19)
[2019-02-16] MEDS: KEFLEX PO SCH ×2 (09:42→20:19)
[2019-02-16] MEDS: CULTURELLE PO SCH (09:42)
[2019-02-16] MEDS: TOPAMAX PO SCH (09:42)
[2019-02-16] MEDS: PRINIVIL PO SCH (09:42)
[2019-02-16] MEDS: LEVEMIR SUBQ SCH (09:42)
[2019-02-16] MEDS: LOVENOX SUBQ SCH (09:43)
[2019-02-16] MEDS: SANTYL OINT TOP SCH (11:28)
--- NOTE | 2019-02-16 17:56 | PROGRESS NOTE ---
DATE: 02/16/2019 SUBJECTIVE: The patient is resting comfortably. She has no complaints. OBJECTIVE: Vital Signs: Temperature 98.7 degrees, blood pressure 106/70, heart rate 73, respirations 18, O2 saturation is 100% on room air. General: This is an elderly female, sitting in bed in no acute distress. Heart: S1, S2 normal. Regular rate and rhythm. Lungs: Equal air entry bilaterally. No wheezing. No rales. No rhonchi. Abdomen: Positive bowel sounds. Soft, nontender, nondistended. Extremities: No edema, no cyanosis. Neurologic: The patient is alert and oriented x3. LABORATORY DATA: Reviewed. ASSESSMENT AND PLAN: 1. Uncontrolled insulin-dependent diabetes mellitus. Continue on Levemir 50 units in the morning and premeal insulin. 2. Diabetic ketoacidosis. Resolved. 3. Hypertension. Controlled. Continue on lisinopril. 4. Right great toe ulceration. Improved. Continue on Keflex. 5. Diabetic neuropathy. Continue on gabapentin. 6. Morbid obesity. Aware. 7. Deep vein thrombosis prophylaxis. Continue on Lovenox. DISPOSITION: The patient will be discharged to inpatient rehabilitation once a bed is available. cc: Charley Madrigal MD MTDD
[2019-02-16] MEDS: ZOFRAN IV PRN (20:19)
[2019-02-16] MEDS: TYLENOL PO PRN (20:19)
[2019-02-17] MEDS: PROTONIX PO SCH (06:24)
[2019-02-17] MEDS: HUMALOG SUBQ SCH ×3 (06:25→16:50)
[2019-02-17] MEDS ORDERED: INSULIN PEN NEEDLES ONE (06:55)
[2019-02-17 07:06] LABS: AGAP 10; BUN 16 mg/dL (8-22); CALCIUM 9.1 mg/dL (8.8-10.2); CHLORIDE 104 mmol/L (98-107); COSMO 288; CREATININE 0.6 mg/dL (0.5-0.9); ESTIMATED GFR > 60; GLUCOSE 204 mg/dL (70-104); POTASSIUM 4.9 mmol/L (3.5-5.1); SODIUM 141 mmol/L (136-145); TCO2 27 mmol/L (25-35)
[2019-02-17] MEDS: NEURONTIN PO SCH ×2 (09:24→20:40)
[2019-02-17] MEDS: KEFLEX PO SCH ×2 (09:24→20:40)
[2019-02-17] MEDS: TOPAMAX PO SCH (09:24)
[2019-02-17] MEDS: CULTURELLE PO SCH (09:24)
[2019-02-17] MEDS: PRINIVIL PO SCH (09:24)
[2019-02-17] MEDS: LEVEMIR SUBQ SCH (09:25)
[2019-02-17] MEDS: SANTYL OINT TOP SCH (09:27)
[2019-02-17] MEDS: LOVENOX SUBQ SCH (09:27)
--- NOTE | 2019-02-17 13:21 | PROGRESS NOTE ---
DATE: 02/17/2019 SUBJECTIVE: The patient is resting comfortably in bed. The patient has no complaints at this time. OBJECTIVE: Vital Signs: Temperature 97 degrees, blood pressure 124/79, heart rate 71, respirations 18, O2 saturation is 96% on room air. General: This is a morbidly obese female sitting in bed, in no acute distress. Heart: S1, S2 normal. Regular rate and rhythm. Lungs: Clear to auscultation bilaterally. No wheezing. No rales. No rhonchi. Abdomen: Positive bowel sounds. Soft, nontender, nondistended. Extremities: No edema. No cyanosis. Neurologic: The patient is alert and oriented x3. Labs: Reviewed. ASSESSMENT AND PLAN: 1. Uncontrolled insulin-dependent diabetes mellitus. We will continue on Levemir 50 units in the morning as well as premeal insulin. 2. Hypertension. Controlled. Continue on lisinopril. 3. Right great toe ulceration. Improved. Continue on Keflex. 4. Morbid obesity. Aware. 5. Diabetic neuropathy. Continue on gabapentin. 6. Deep vein thrombosis prophylaxis. Continue on Lovenox. 7. Disposition. The patient will be discharged to inpatient rehab once a bed is available. cc: Charley Madrigal MD
[2019-02-18] MEDS: PROTONIX PO SCH (06:16)
[2019-02-18] MEDS: HUMALOG SUBQ SCH ×3 (07:42→16:30)
[2019-02-18] MEDS: LOVENOX SUBQ SCH (09:06)
[2019-02-18] MEDS: NEURONTIN PO SCH ×2 (09:06→20:35)
[2019-02-18] MEDS: TOPAMAX PO SCH (09:06)
[2019-02-18] MEDS: PRINIVIL PO SCH (09:06)
[2019-02-18] MEDS: KEFLEX PO SCH (09:06)
[2019-02-18] MEDS: CULTURELLE PO SCH (09:06)
[2019-02-18] MEDS: LEVEMIR SUBQ SCH (09:06)
[2019-02-18] MEDS: SANTYL OINT TOP SCH (09:07)
--- NOTE | 2019-02-18 15:01 | PROGRESS NOTE ---
DATE: 02/18/2019 SUBJECTIVE: The patient is resting comfortably. No acute events noted overnight. OBJECTIVE: Vital Signs: Temperature 97.9 degrees, blood pressure 109/65, heart rate 69, respirations 18, O2 saturation is 97% on room air. General: This is a morbidly obese female, sitting at the edge of the bed in no acute distress. Heart: S1, S2 normal. Regular rate and rhythm. Lungs: Clear to auscultation bilaterally. Abdomen: Positive bowel sounds. Soft, nontender, nondistended. Extremities: No edema. No cyanosis. No calf tenderness. Neurologic: The patient is alert and oriented x4. LABORATORY DATA: None. ASSESSMENT AND PLAN: 1. Diabetic ketoacidosis. Resolved. 2. Uncontrolled insulin-dependent diabetes mellitus type 2. The patient has been running in the 200s to 300s. Will increase the Levemir doses to 55 units in the morning, and continue with premeal insulin. 3. Hypertension. Controlled. 4. Morbid obesity. The patient has been counseled about weight loss and proper diet. 5. Right great toe ulceration. Improved. Continue with wound care. 6. Diabetic neuropathy. Continue on gabapentin. 7. Deep vein thrombosis prophylaxis. Continue on Lovenox. 8. Disposition. The patient states that she will be able to check in at the [facility] on Saturday. cc: Charley Madrigal MD MTDD
[2019-02-19] MEDS: HUMALOG SUBQ SCH ×3 (06:19→17:55)
[2019-02-19] MEDS: PROTONIX PO SCH (07:14)
[2019-02-19 07:43] LABS: HEMATOCRIT 34.9 % (37.0-47.0); HEMOGLOBIN 11.4 g/dL (12.0-16.0); MCH 31.1 PG (27-31); MCHC 32.7 g/dL (33-37); MCV 95.4 FL (81-99); MPV 10.6 FL (7.4-10.4); RBC 3.66 XMIL (4.2-5.4); WBC 3.33 X1000 (4.8-10.8)
[2019-02-19 07:57] LABS: CALCIUM 9.3 mg/dL (8.8-10.2); POTASSIUM 4.9 mmol/L (3.5-5.1)
[2019-02-19] MEDS ORDERED: LEVEMIR SUBQ SCH (09:00)
[2019-02-19] MEDS ORDERED: PRINIVIL PO SCH (09:00)
[2019-02-19] MEDS: TOPAMAX PO SCH (09:18)
[2019-02-19] MEDS: NEURONTIN PO SCH (09:18)
[2019-02-19] MEDS: CULTURELLE PO SCH (09:20)
[2019-02-19] MEDS: LOVENOX SUBQ SCH (09:20)
[2019-02-19] MEDS: SANTYL OINT TOP SCH (11:48)
--- NOTE | 2019-02-19 15:02 | PROGRESS NOTE ---
DATE: 02/19/2019 SUBJECTIVE: This morning, Ms. Pandya refers to be doing okay. No complaints. She was actually on her phone. Her partner was at the bedside at the time of the encounter. OBJECTIVE: Vital Signs: Blood pressure 90/53, pulse of 74, respirations 18, temperature 98.2 degrees. General: Ms. Pandya is a 54-year-old female. She was in bed. No distress. HEENT: Mucosa is pink and moist. Anicteric. Acyanotic. Neck: Supple. Chest: Clear to auscultation. Cardiovascular: Regular rate and rhythm. Abdomen: Soft. Extremities: No pedal edema. OPTICAL DESIGNER: The patient is awake, alert, and oriented. LABORATORY DATA: CBC is reviewed. WBC is 3.3, hemoglobin 11.4, platelet count of 164,000. Chemistry is also reviewed and unremarkable. Glucose is 279. The patient's A1c on admission was 12.7. ASSESSMENT: 1. Diabetic ketoacidosis on presentation, resolved. 2. Insulin-dependent diabetes mellitus. The patient is currently on insulin regimen. Glucose is a lot better controlled. 3. Hypertension, stable. 4. Obesity with body mass index of 32.9. 5. Diabetic neuropathy. The patient is on gabapentin. 6. Right great toe ulceration, improving as per the documentation. 7. Disposition. Still pending final arrangement by Social Work/Case Management. cc: Howard Asencio MD
[2019-02-19 15:30] VITALS: BP 99/68
--- NOTE | 2019-02-20 08:57 | DISCHARGE SUMMARY ---
ADMISSION DATE: 02/08/2019 DISCHARGE DATE: 02/19/2019 DISPOSITION: The patient is being discharged to [facility]. PRIMARY CARE PHYSICIAN: Dr. Georgi Avery and she will follow up with him. CONSULTATION DURING THIS ADMISSION: None. IMAGING STUDIES OF SIGNIFICANCE: Chest x-ray was negative. ADMISSION DIAGNOSES: 1. Diabetic ketoacidosis. 2. History of chronic pain and neuropathy. 3. Renal dysfunction. DIAGNOSES AT THE TIME OF DISCHARGE: 1. Diabetic ketoacidosis on presentation, resolved. 2. Insulin-dependent diabetes mellitus type 2. 3. Medication noncompliance. 4. Hypertension. 5. Obesity with BMI of 32.9. 6. Diabetic polyneuropathy. DISCHARGE MEDICATIONS: 1. Lactobacillus. 2. [place] 7.5 p.o. q.6 h p.r.n. 3. Lisinopril 10 mg p.o. daily. 4. Topiramate 25 mg p.o. daily. 5. Keflex 500 mg p.o. q.12. 6. Gabapentin 300 b.i.d. 7. Insulin lispro 10 units subcu a.c. 8. Pantoprazole 40 mg p.o. daily. 9. Insulin detemir 50 units subcutaneous daily. PRESENTING COMPLAINT: Feeling bad for 2 days, just nauseated and cannot eat anything. HISTORY OF PRESENTING COMPLAINT: Ms. Pandya is a 54-year-old female who is known to be diabetic type 2 insulin dependent for the past 20 years, questionable medication compliance, came to the emergency department because of nauseation and feeling sick, was found to be in diabetic ketoacidosis. She was admitted to the ICU for management. HOSPITAL COURSE: Ms. Pandya was started on the diabetic ketoacidosis protocol. She seems to have responded well to treatment. She was transferred to the medical floor and her insulin regimen was uptitrated for adequate blood glucose control. All her other comorbidities were concurrently co-managed. I understand yesterday she was ready for discharge. Unfortunately, she did not have anywhere safe to go, so today Case Management has been able to find her the [facility] area so that she will be at least for a day. I understand that Ms. Pandya lives in 1 of the hostels around and that she is waiting on her check on Saturday to be able to go back. She has been advised to follow up with Dr. Avery, who is her primary care doctor. TIME SPENT: Time spent for discharge is 37 minutes. Please refer to my progress note for today. cc: MD Georgi Sánchez MD
== END 2019-02-19 18:20 | disposition home or self-care (01) | DRG 638 ==
LOC: SUPCPDRO → ED 11:05 → ICU 16:38 → SUATTDRO 16:38 → 3N 02-10 11:34
PROVIDERS: ATTEND Internal Medicine